=== PATIENT | female | born 1995 | race Caucasian/White ===

== ENCOUNTER 2020-09-02 19:55 | Emergency (ER) | payer SELFPAY ==
[2020-09-02 20:05] VITALS: BP 164/79; PULSE 86; RESP 16; TEMP 36.3; O2SAT 98; BMI 40.8
[2020-09-02 20:10] VITALS: BP 136/78; PULSE 80; RESP 16; TEMP 36.3; O2SAT 98
--- NOTE | 2020-09-02 20:17 | ED_ITS ---
HPI - Skin/Abscess/Foreign Bdy General: Chief complaint: Skin/Abscess/Foreign Body Stated complaint: Sun Burn Time Seen by Provider: 09/02/20 20:17 History of Present Illness: HPI narrative: Patient comes in for a sunburn to the shoulders forearms thighs and knees. Patient reports sunburn occurred about 5 days ago. Patient has had worsening pain and discomfort to the left thigh and knee area. Patient appears well. Patient appears in no acute distress. Review of Systems General: Reports: 10 or more systems reviewed and unremarkable except in HPI and below Skin/Breast: Reports: other (Sunburn) Physical Exam Const: COMMON NORMALS: no acute distress and patient oriented x3 GENERAL APPEARANCE: cooperative HENMT: COMMON NORMALS: normocephalic and Normal external nose present HEAD & SCALP: normal to inspection and normocephalic NOSE: Normal external nose pr esent Eye: GENERAL EYE: appearance normal, both eyes and all related structures Neck/C-Spine: COMMON NORMALS: full ROM Chest: COMMONS NORMALS: normal inspection of the chest Resp: COMMON NORMALS: normal respiratory effort EFFORT & INSPECTION: Yes able to speak in complete sentences Cardio: COMMON NORMALS: regular rate and regular rhythm RATE: regular rate RHYTHM: regular rhythm GI: COMMON NORMALS: non-tender Extremity: COMMON NORMALS: normal to inspection Neuro: COMMON NORMALS: patient oriented x3 and moves all extremities Psych: COMMON NORMALS: mental status grossly normal and cooperative Skin: NARRATIVE SKIN EXAM: Significant sunburn is noted to the shoulders upper extremities thighs and knees of the lower extremities. Patient reports increased redness and tenderness to the left leg. Patient denies any fever. Course Vital Signs: Vital signs: Vital Signs Temperature 97.3 F L 09/02/20 20:05 Pulse Rate 86 09/02/20 20:05 Respiratory Rate 16 09/02/20 20:05 Blood Pressure 164/79 09/02/20 20:05 Pulse Oximetry 98 09/02/20 20:05 MDM - Skin/Abscess/Foreign Bdy MDM Narrative: Medical decision making narrative: Patient comes in for persistent discomfort due to sunburn with worsening symptoms to the left thigh and knee area of her sunburn. Vital signs are normal. Differential diagnosis includes sunburn second-degree, cellulitis, malingering. Recommended patient be treated with antibiotic to cover for secondary cellulitis to the sunburn. Discussed need for Discharge Plan Discharge Patient Disposition: Home Clinical Impression: Sunburn of second degree Condition: Stable Prescriptions: New bacitracin 500 unit/gram ointment 1 applic topical BID Qty: 60 RF: 0 cephalexin 500 mg capsule 500 mg PO TID 7 Days Qty: 21 RF: 0 ibuprofen 800 mg tablet 800 mg PO TID PRN (Reason: pain (scale score 7-10)) Qty: 30 RF: 0 Discharge Orders: Discharge ED (Routine); Ordered 09/02/20 Ordered By: Tristan Soto Discharge Diet: Usual diet Discharge Activity: Increase activity as tolerated Patient Instructions: Sunburn (ED), Opioid Safety Activity Restrictions/Additional Instructions: Use medication as directed. Drink plenty of water with medication. Avoid sunlight until wounds are healed. Use sunscreen routinely to prevent further monzon. Follow-up with primary care as needed. Return to the ER for new concer ns. Coding Level of Care Code ED Rf Engineer for Brady Curry
[2020-09-02 20:38] VITALS: BP 136/78; PULSE 80; RESP 16; TEMP 36.3; O2SAT 98
== END 2020-09-02 20:39 | disposition home or self-care (01) ==
PROVIDERS: Emergency Provider Nurse Practitioner Family
DX: L55.1 Sunburn of second degree (principal)
CPT/HCPCS: 99282

== ENCOUNTER 2021-01-14 23:52 | Inpatient (IN) | payer SELFPAY ==
[2021-01-15] VITALS: BP 99/53; PULSE 120; RESP 24; TEMP 36.8; O2SAT 120; BMI 39.2
--- NOTE | 2021-01-15 00:16 | ECG_ITS ---
[facility] Test Date: 2021-01-15 Pat Name: Abril Jaime Department: Room: 153 Gender: Female Svp Group Director: : 1995 Requested By: Will Arrington Order Number: [id number] Monik MD: Lilian Julio M.D. Measurements Intervals [place] Rate: 87 P: 20 ID: [id number] QRS: 81 QRSD: 96 T: 28 QT: 357 QTc: 432 Interpretive Statements SINUS RHYTHM No previous ECG available for comparison Electronically Signed On 01-15-2021 21:06:01 CDT by Lilian Julio M.D. [id number]
--- NOTE | 2021-01-15 00:31 | PC.NURSE ---
Poison Control called [facility]. Stated EKG watch for QT changes, TX with BEnzo's. Toxic dose is 1000mg. Reviewed BP and HR. Halflife 6 to 10 hours. Not clear time of when pt took 4 tabs of Cymbalta 60mg. 2 prior to work today and then 2 more sometime during work today. [facility]mm to fax over the details of OVerdose care. Review with Nursing staff, diesel maintenance technician and MD.
--- NOTE | 2021-01-15 00:34 | ED_ITS ---
HPI - Psych General: Chief Complaint: Psychiatric Symptoms Stated Complaint: Rapid Heart Beat/SOB/SI Time Seen by Provider: 01/15/21 00:15 Source: patient Mode of arrival: ambulatory Limitations: no limitations History of Present Illness: HPI Narrative: 25-year-old female states she has been having anxiety and severe anger and depression throughout the day. She states she felt like her heart racing she been short of breath. She states that these feelings have been giving her suicidal thoughts. She had took extra Prozac today states she took 460 mg pills throughout the day due to her increasing anxiety and depression. She denies any specific plans to kill her self. Denies any cough or fever. Associated symptoms: Reports depression Review of Systems Const: Denies: fever(s), chills, body aches or change in appetite Eyes: Denies: blurry vision or eye discomfort ENMT: Denies: throat pain or dental pain Card: Reports: palpitations Resp: Reports: dyspnea GI: Denies: abdominal pain, nausea, vomiting or diarrhea : Denies: dysuria Musc: Denies: neck pain or back pain Skin/Breast: Denies: rash Neuro: Denies: headache(s) Psych: Reports: anxiety and depression [place]/Lymph: Denies: easy bruising All/Imm: Denies: urticaria Physical Exam Const: COMMON NORMALS: no acute distress, patient oriented x3 and healthy appearing HENMT: COMMON NORMALS: normocephalic and atraumatic HEAD & SCALP: normocephalic and atraumatic Eye: COMMON NORMALS: Equal, round and reactive pupils present and EOMs intact bilaterally PUPIL: Yes Equal, round and reactive pupils present Neck/C-Spine: COMMON NORMALS: full ROM and supple Chest: COMMONS NORMALS: normal inspection of the chest and normal palpation of entire chest wall Resp: COMMON NORMALS: normal respiratory effort, No retractions, No use of accessory muscles and clear to auscultation bilaterally AUSCULTATION: clear to auscultation bilaterally Cardio: COMMON NORMALS: regular rhythm and No murmurs present (Cardio) RATE: tachycardic RHYTHM: regular rhythm GI: COMMON NORMALS: Normal to inspection, nondistended, normoactive bowel sounds present, Soft to palpation, non-tender and no masses PALPATION: Yes Soft to palpation Extremity: COMMON NORMALS: normal to inspection and full ROM Neuro: COMMON NORMALS: patient oriented x3, moves all extremities and no focal motor deficits Psych: COMMON NORMALS: mental status grossly normal, Normal thought process present and cooperative MOOD & AFFECT: Yes anxious THOUGHT PROCESS: Normal thought process present THOUGHT CONTENT: Yes Suicidality present Skin: COMMON NORMALS: no rashes or lesions noted and no wounds GENERAL SKIN EXAM: no rashes or lesions noted Course 2 Vital Signs: Vital signs: Vital Signs Temperature 98.2 F 01/15/21 00:00 Pulse Rate 120 H 01/15/21 00:00 Respiratory Rate 24 H 01/15/21 00:00 Blood Pressure 99/53 01/15/21 00:00 Pulse Oximetry 120 H 01/15/21 00:00 MDM - Psych MDM Narrative: Medical decision making narrative: Patient presents here with anxiety along with depression. Patient's blood work here is all normal she has no signs of pulmonary embolism or any cause for dyspnea besides her anxiety. Her depression is worsening and she voluntarily wants to be admitted to psych unit. I spoke to psychiatrist Dr. Jama and will admit at this time. Lab Data: Labs: Lab Results 01/15/21 01/15/21 01/15/21 00:55 00:55 00:55 WBC 10.2 10^3/uL H 10 ^3/uL (4.0-10.0) RBC 4.88 10^6/uL 10^6 /uL (4.1-5.3) Hgb 14.5 g/dL g/dL (11.5-15.3) Hct 43.8 % % (37.0-47.0) MCV 89.8 fl fl (81-99) MCH 29.7 pg pg (28.0-34.0) MCHC 33.1 g/dL g/dL (30.0-36.0) RDW 12.7 % % (12.1-15.1) Plt Count 345 10^3/cmm 10^3 /cmm (130-400) MPV 10.0 fL fL (7.4-10.4) Neut % (Auto) 63.5 % % Lymph % (Auto) 26.9 % % [place] % (Auto) 6.5 % % Eos % (Auto) 1.6 % % Baso % (Auto) 0.9 % % Neut # (Auto) 6.50 10^3/uL 10^3 /uL (1.8-7.7) Lymph # (Auto) 2.8 10^3/uL 10^3/ uL (0.8-4.8) [place] # (Auto) 0.7 10^3/uL 10^3/ uL (0.2-0.9) Eos # (Auto) 0.2 10^3/uL 10^3/ uL (0.0-0.8) Baso # (Auto) 0.1 10^3/uL 10^3/ uL (0.0-0.1) Nucleated RBC % (a uto) 0 % % Nucleated RBCs # 0.0 /100WBC /100W BC D-Dimer 0.37 ug/mIFEU ug/ mIFEU (0-0.59) Sodium 136 mmol/L mmol/L (136-145) Potassium 3.6 mmol/L mmol/L (3.5-5.1) Chloride 100 mmol/L mmol/L (98-107) Carbon Dioxide 21 mmol/L L mmol/ L (22-29) Anion Gap 18.6 (5-19) BUN 13 mg/dL mg/dL (6-20) Creatinine 0.7 mg/dL mg/dL (0.5-0.9) GFR Calculation 103.7 mL/min mL/m in (90-130) Glucose 67 mg/dL mg/dL (65-115) Calculated Osmolal ity 280 mOsm/kg L mOs m/kg (285-295) Calcium 10.3 mg/dL mg/dL (8.5-10.5) Magnesium 2.2 mg/dL mg/dL (1.7-2.3) Total Bilirubin 0.4 mg/dL mg/dL (0.15-1.2) AST 18 U/L U/L (0-32) ALT 21 U/L U/L (0-33) Alkaline Phosphata se 120 IU/L H IU/L (35-105) Total Protein 8.4 g/dL g/dL (6.6-8.7) Albumin 4.7 g/dL g/dL (3.5-5.2) Globulin 3.7 g/dL g/dL (1.3-4.6) TSH 2.56 uIU/mL uIU/m L (0.27-4.20) Urine Color Urine Appearance Urine pH Ur Specific Gravit y Urine Protein Urine Glucose (UA) Urine Ketones Urine Blood Urine Nitrate Urine Bilirubin Urine Urobilinogen Ur Leukocyte Lamar ase Urine RBC Urine WBC Ur Squamous Epith Cells Calcium Oxalate Cr ystal Amorphous Sediment Urine Bacteria Urine Mucus Salicylates < 0.3 mg/dL L mg/ dL (3-10) Urine Opiates Scre en Acetaminophen < 5.0 ug/mL L ug/ mL (10-30) Ur Barbiturates Sc reen Ur Phencyclidine S crn Ur Amphetamines Sc reen U Benzodiazepines Scrn Urine Cocaine Scre en U Marijuana (THC) Screen Ethyl Alcohol < 10 mg/dL mg/dL (0-10) 01/15/21 01/15/21 00:55 00:55 WBC RBC Hgb Hct MCV MCH MCHC RDW Plt Count MPV Neut % (Auto) Lymph % (Auto) [place] % (Auto) Eos % (Auto) Baso % (Auto) Neut # (Auto) Lymph # (Auto) [place] # (Auto) Eos # (Auto) Baso # (Auto) Nucleated RBC % (a uto) Nucleated RBCs # D-Dimer Sodium Potassium Chloride Carbon Dioxide Anion Gap BUN Creatinine GFR Calculation Glucose Calculated Osmolal ity Calcium Magnesium Total Bilirubin AST ALT Alkaline Phosphata se Total Protein Albumin Globulin TSH Urine Color Yellow (Yellow) Urine Appearance Sl hazy (CLEAR) Urine pH 5 (5-7) Ur Specific Gravit y 1.030 (1.005-1.030) Urine Protein Neg (Negative) Urine Glucose (UA) Norm (Normal) Urine Ketones 1+ H (Negative) Urine Blood Neg (Negative) Urine Nitrate Negative (Negative) Urine Bilirubin 1+ H (Negative) Urine Urobilinogen 1 mg/dL H mg/dL (Negative) Ur Leukocyte Lamar ase Trace H (Negative) Urine RBC 0-4 /hpf H /hpf (0-2) Urine WBC 15-25 /hpf H /hpf (0-5) Ur Squamous Epith Cells 15-25 /hpf H /hpf (0-5) Calcium Oxalate Cr ystal 25-40 /hpf H /hpf Amorphous Sediment Not Reportable Urine Bacteria 4+ /hpf H /hpf (NONE) Urine Mucus 2+ /hpf /hpf Salicylates Urine Opiates Scre en Negative ng/mL ng /mL (Negative) Acetaminophen Ur Barbiturates Sc reen Negative ng/mL ng /mL (Negative) Ur Phencyclidine S crn Negative ng/mL ng /mL (Negative) Ur Amphetamines Sc reen Negative ng/mL ng /mL (Negative) U Benzodiazepines Scrn Negative ng/mL ng /mL (Negative) Urine Cocaine Scre en Negative ng/mL ng /mL (Negative) U Marijuana (THC) Screen Negative ng/mL ng /mL (Negative) Ethyl Alcohol EKG Data^: EKG 1: Attestation: I personally reviewed and interpreted this EKG as follows: EKG interpretation date: 01/15/21 EKG interpretation time: 00:37 Interpretation: nsr hr [address] or t wave abnormalities qrs 96 qtc 402 Discharge Plan Discharge Patient Disposition: Admitted As Inpatient Admit Provider: Eren Jama Clinical Impression: Depression, Acute anxiety Condition: Stable Coding Level of Care Code ED Furniture Sander for Brady Fwd Exam Comprehensive
[2021-01-15] MEDS: LORazepam 2 mg/mL INJ 1 mL 1 MG IVP (01:15)
[2021-01-15 01:20] LABS: Basophils # 0.1 10^3/uL (0.0-0.1); Basophils % 0.9 %; Eosinophils # 0.2 10^3/uL (0.0-0.8); Eosinophils % 1.6 %; Hematocrit 43.8 % (37.0-47.0); Hemoglobin 14.5 g/dL (11.5-15.3); Lymphocytes # 2.8 10^3/uL (0.8-4.8); Lymphocytes % 26.9 %; Mean Corpuscular HGB Conc 33.1 g/dL (30.0-36.0); Mean Corpuscular Hemoglobin 29.7 pg (28.0-34.0); Mean Corpuscular Volume 89.8 fl (81-99); Monocytes # 0.7 10^3/uL (0.2-0.9); Monocytes % 6.5 %; Neutrophils % 63.5 %; Nucleated Red Blood Cells % 0 %; Platelet Count 345 10^3/cmm (130-400); Red Blood Count 4.88 10^6/uL (4.1-5.3); Red Cell Distribution Width 12.7 % (12.1-15.1); White Blood Count 10.2 10^3/uL (4.0-10.0)
[2021-01-15 01:51] LABS: Add Urine Microscopic? YES; Bilirubin Urine 1+ (Negative); Blood Urine Neg (Negative); Glucose Urine UA Norm (Normal); Ketones Urine 1+ (Negative); Leukocyte Esterase Urine Trace (Negative); Nitrate Urine Negative (Negative); Protein Urine Neg (Negative); Urine Appearance SL Hazy (CLEAR); Urine Color Yellow (Yellow); Urobilinogen Urine 1 mg/dL (Negative); pH Urine 5 (5-7)
[2021-01-15 01:54] LABS: D Dimer 0.37 ug/mIFEU (0-0.59)
[2021-01-15 01:56] LABS: Alanine Aminotransferase 21 U/L (0-33); Albumin Level 4.7 g/dL (3.5-5.2); Alkaline Phosphatase 120 IU/L (35-105); Anion Gap 18.6 (5-19); Aspartate Amino Transferase 18 U/L (0-32); Blood Urea Nitrogen 13 mg/dL (6-20); Calcium 10.3 mg/dL (8.5-10.5); Carbon Dioxide 21 mmol/L (22-29); Chloride 100 mmol/L (98-107); Globulin 3.7 g/dL (1.3-4.6); Glomerular Filtration Rate 103.7 mL/min (90-130); Glucose 67 mg/dL (65-115); Magnesium 2.2 mg/dL (1.7-2.3); Osmolality Calculated 280 mOsm/kg (285-295); Potassium 3.6 mmol/L (3.5-5.1); Sodium 136 mmol/L (136-145); Thyroid Stimulating Hormone 2.56 uIU/mL (0.27-4.20); Total Bilirubin 0.4 mg/dL (0.15-1.2); Total Protein 8.4 g/dL (6.6-8.7)
[2021-01-15 01:57] LABS: RBC Urine 0-4 /hpf (0-2); WBC Urine 15-25 /hpf (0-5)
[2021-01-15 01:58] LABS: Add Urine Culture? No; Bacteria Urine 4+ /hpf; Calcium Oxalate Crystals Urine 25-40 /hpf; Mucus Urine 2+ /hpf; Squamous Epithelial Cell Urine 15-25 /hpf (0-5)
[2021-01-15 01:59] LABS: Acetaminophen < 5.0 ug/mL (10-30); Alcohol Level < 10 mg/dL (0-10); Salicylate < 0.3 mg/dL (3-10)
[2021-01-15 02:03] VITALS: BP 135/89; PULSE 88; RESP 20; TEMP 36.8; O2SAT 100
[2021-01-15 02:03] LABS: Amphetamines Screen Urine Negative (Negative); Barbiturates Screen Urine Negative (Negative); Benzodiazepines Screen Urine Negative (Negative); Cocaine Screen Urine Negative (Negative); Opiate Screen Urine Negative (Negative); PCP Screen Urine Negative (Negative); THC Screen Urine Negative (Negative)
[2021-01-15 02:56] VITALS: BP 102/63; PULSE 74; RESP 18; O2SAT 98
[2021-01-15] MEDS: trazodone 50 mg Tablet PO (03:23)
[2021-01-15 06:00] VITALS: BP 116/76; PULSE 97; RESP 16; TEMP 36.6; O2SAT 97; BMI 39.2
--- NOTE | 2021-01-15 08:27 | PC.NURSE ---
Poison control called this nurse at this time assessing patient. Vital signs WNL for patient. Lab results reported to poison control. Stated she will call again in a few hours to ask about patient.
[2021-01-15 14:00] VITALS: BP 129/68; PULSE 77; RESP 16; TEMP 36.6; O2SAT 99
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
[2021-01-15 20:54] VITALS: BP 118/87; PULSE 88; RESP 17; TEMP 36.2; O2SAT 99
--- NOTE | 2021-01-15 21:48 | PC.NURSE ---
Abril is a 25 year old female admitted onto our unit yesterday. She was observed sitting in the day prior to her assessment tonight working on some art work. She enjoys word searches, coloring and drawing. Patient stated she was frustrated and felt she didn't need to be here in the unit. Patient stated she'd ran out of her duloxetine and after about 5 days, her mother offered for her to take some of her prescription duloxetine until she could afford to get her meds refilled. Work was stressful so she decided to take two pills. when that wasn't effective, she took more but doesn't remember how long it had been between doses. She also stated she was also drinking a new energy drink that day too. She came to the hospital after she told her Grandma she felt like she was having a heart attack. She was frustrated because the doctor didn't come in today to talk with her to release her home. Discussed triggers to her anxiety and brainstormed ideas on how to prevent or resolve these triggers when they happen. Patient stated this place isn't bad. It's better than some of the other places I've stayed. I just wish I could keep my cell phone with me, it really helps me with my anxiety issues. Observed two red scratches on the right side of her neck. She stated she scratched herself at work during her anxiety attack. Patient denies any pain, sob, SI, HI or plans for self harm. Encouraged patient to approach the nurses station with any questions or concerns she may have.
[2021-01-16] MEDS: hyDROXYzine 25 mg Capsule 50 MG PO (01:44)
[2021-01-16] MEDS: trazodone 50 mg Tablet PO (01:44)
[2021-01-16 06:00] VITALS: BP 128/76; PULSE 68; RESP 15; TEMP 36.2; O2SAT 98
[2021-01-16] MEDS: BuSPIRONE 10 mg Tablet 15 MG PO ×2 (10:10→20:45)
--- NOTE | 2021-01-16 11:17 | NPU.GN ---
[facility] Topic:Carlitos Quiroga General Mood of Group: Abril did not attend group therapy as she wanted to sleep.
[2021-01-16 14:00] VITALS: BP 130/85; PULSE 94; RESP 20; TEMP 36.1; O2SAT 99
--- NOTE | 2021-01-16 15:49 | PC.NURSE ---
Patient has had visitors this afternoon. Interacting well with staff and visitors. Good eye contact, clear speech, logical thought content. Patient is requesting to sign herself out. States, I check myself in when I need it. So much happened that led up to me coming in, and I needed to be here. Now I feel that I have made it to the top of the hill and come down and everything is level. I'm safe and want to go home. Informed patient I needed to contact the physician.
--- NOTE | 2021-01-16 15:53 | PC.NURSE ---
Dr. Wiley morocho.
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
--- NOTE | 2021-01-16 18:15 | PC.NURSE ---
PATIENT INFORMED OF DR. LU DECISION. HE DID NOT AGREE TO RELEASE HER TONIGHT DUE TO HER STATEMENT ABOUT TAKING 240MG OF HER ANTI-DEPRESSANTS AND HE WOULD DISCUSS THIS ISSUE WITH HER IN THE MORNING. SHE RELUCTANTLY AGREED.
[2021-01-16 22:00] VITALS: BP 128/72; PULSE 81; RESP 18; TEMP 36.2; O2SAT 97
[2021-01-17 06:00] VITALS: BP 126/79; PULSE 94; RESP 15; TEMP 36.8; O2SAT 99
[2021-01-17] MEDS: nitrofurantoin SR (BID) 100 mg Capsule PO (08:31)
[2021-01-17] MEDS: BuSPIRONE 10 mg Tablet 15 MG PO (08:31)
--- NOTE | 2021-01-17 12:03 | NPU.GN ---
[facility] Topic:Michelle General Mood of Group: Abril did not attend group therapy today. Abril wanted to sleep.
[2021-01-17 14:00] VITALS: BP 145/81; PULSE 104; RESP 20; TEMP 36.1; O2SAT 95
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
[2021-01-17 15:43] VITALS: BP 145/81; PULSE 104; RESP 20; TEMP 36.1; O2SAT 95
== END 2021-01-17 16:31 | disposition home or self-care (01) | DRG 880 ==
LOC: ER 01-15 02:04 → NP 01-15 02:20
PROVIDERS: Admitting Provider Psychiatry & Neurology Psychiatry; Emergency Provider Emergency Medicine; Visit Provider Psychiatry & Neurology Psychiatry
DX: F41.9 Anxiety disorder, unspecified (principal); F32.A Depression, unspecified; R45.4 Irritability and anger; E66.9 Obesity, unspecified; Z68.39 Body mass index [BMI] 39.0-39.9, adult
CPT/HCPCS: 80053; 80306; 80307; 81001; 83735; 84443; 85025; 85378; 93005; 96374; 97165; 99285; J2060

== ENCOUNTER 2021-01-21 20:50 | Inpatient (IN) | payer SELFPAY ==
[2021-01-21 21:13] VITALS: BP 144/73; PULSE 81; RESP 20; TEMP 37; O2SAT 98; BMI 38.7
--- NOTE | 2021-01-21 21:22 | ED_ITS ---
HPI - General Adult General: Chief complaint: Psychiatric Symptoms Stated complaint: SI Time Seen by Provider: 01/21/21 21:13 History of Present Illness: HPI narrative: HPI: [25]yo patient w/ hx of depression BIBA for woresening anxiety and depressoin. for On arrival, the patient is AAOx3 and cooperative with my evaluation. No focal complaints of chest pain, shortness of breath, palpitations, N/V, focal GI/ complaints. Currently denies SI/HI. No complaints of hallucinations. Onset: chronic Duration: ongoing Location: home Severity: severe Review of Systems Narrative: Constitutional: No fever, no chills. HEENT: No vision changes CV: No chest pain, no palpitations PULM: No productive cough, no dyspnea. GI: No abdominal pain, no N/V/D. : No dysuria MSKEL: No muscle pain SKIN: No new rashes, no lesions. NEURO: No headache, no focal weakness. HEME: No visible bruises PSYCH: Normal mood [facility] Female Reproductive History: Date of last menstrual period: 01/20/21 Physical Exam Narrative: EXAM NARRATIVE: Head: Atraumatic Eyes: PERRL, conjunctiva without injection, eyes tracking ENT: Mucous membrane moist NECK: Supple without lymphadenopathy LUNGS: LCTAB CV: RRR ABDOMEN: Soft, nontender EXTREMITY: Normal ROM SKIN: No rash or erythema NEURO: Awake and alert. No focal weakness PSYCH: Cooperative mood and affect. Course Vital Signs: Vital signs: Vital Signs Temperature 98.6 F 01/26/21 14:00 Pulse Rate 97 01/26/21 14:00 Respiratory Rate 18 01/26/21 14:00 Blood Pressure 125/80 01/26/21 14:00 Pulse Oximetry 98 01/26/21 14:00 MDM - General Adult MDM Narrative: Medical decision making narrative: [25]yo patient w/ hx of depression and anxiety presenting for worsening depression. HDS, exam within normal limit Thoughts are linear and organized, and the patient has no AH/VH, or HI. Clinically the patient displays no overt toxidrome; they are well appearing, with low suspicion for toxic ingestion given history and exam. Symptoms unlikely 2/2 anemia, hypothyroidism, infection, or ICH. Workup: CBC, CMP, Lipase, salicylate/tylenol, UDS Lab findings: wnl [9:58] On reassessment, labs and workup wnl. Patient is hemodynamically stable with no acute medical complaints. Case discussed with psychiatric provider Dr. Goodrich at [facility] psych inpatient with recommendation for admission Disposition: Psych Lab Data: Labs: Lab Results 01/21/21 01/21/21 01/21/21 21:50 21:50 21:50 WBC 12.5 10^3/uL H 10 ^3/uL (4.0-10.0) RBC 4.66 10^6/uL 10^6 /uL (4.1-5.3) Hgb 13.8 g/dL g/dL (11.5-15.3) Hct 42.2 % % (37.0-47.0) MCV 90.6 fl fl (81-99) MCH 29.6 pg pg (28.0-34.0) MCHC 32.7 g/dL g/dL (30.0-36.0) RDW 12.8 % % (12.1-15.1) Plt Count 364 10^3/cmm 10^3 /cmm (130-400) MPV 10.1 fL fL (7.4-10.4) Neut % (Auto) 73.8 % % Lymph % (Auto) 19.6 % % Carbon % (Auto) 4.5 % % Eos % (Auto) 0.9 % % Baso % (Auto) 0.8 % % Neut # (Auto) 9.24 10^3/uL H 10 ^3/uL (1.8-7.7) Lymph # (Auto) 2.5 10^3/uL 10^3/ uL (0.8-4.8) Carbon # (Auto) 0.6 10^3/uL 10^3/ uL (0.2-0.9) Eos # (Auto) 0.1 10^3/uL 10^3/ uL (0.0-0.8) Baso # (Auto) 0.1 10^3/uL 10^3/ uL (0.0-0.1) Nucleated RBC % (a uto) 0 % % Nucleated RBCs # 0.0 /100WBC /100W BC Sodium 138 mmol/L mmol/L (136-145) Potassium 3.9 mmol/L mmol/L (3.5-5.1) Chloride 105 mmol/L mmol/L (98-107) Carbon Dioxide 23 mmol/L mmol/L (22-29) Anion Gap 13.9 (5-19) BUN 8 mg/dL mg/dL (6-20) Creatinine 0.6 mg/dL mg/dL (0.5-0.9) GFR Calculation 123.9 mL/min mL/m in (90-130) Glucose 80 mg/dL mg/dL (65-115) Calculated Osmolal ity 283 mOsm/kg L mOs m/kg (285-295) Calcium 9.6 mg/dL mg/dL (8.5-10.5) Urine HCG, Qual Negative (Negative) Salicylates < 0.3 mg/dL L mg/ dL (3-10) Urine Opiates Scre en Acetaminophen < 5.0 ug/mL L ug/ mL (10-30) Ur Barbiturates Sc reen Ur Phencyclidine S crn Ur Amphetamines Sc reen U Benzodiazepines Scrn Urine Cocaine Scre en U Marijuana (THC) Screen 01/21/21 22:00 WBC RBC Hgb Hct MCV MCH MCHC RDW Plt Count MPV Neut % (Auto) Lymph % (Auto) Carbon % (Auto) Eos % (Auto) Baso % (Auto) Neut # (Auto) Lymph # (Auto) Carbon # (Auto) Eos # (Auto) Baso # (Auto) Nucleated RBC % (a uto) Nucleated RBCs # Sodium Potassium Chloride Carbon Dioxide Anion Gap BUN Creatinine GFR Calculation Glucose Calculated Osmolal ity Calcium Urine HCG, Qual Salicylates Urine Opiates Scre en Negative ng/mL ng /mL (Negative) Acetaminophen Ur Barbiturates Sc reen Negative ng/mL ng /mL (Negative) Ur Phencyclidine S crn Negative ng/mL ng /mL (Negative) Ur Amphetamines Sc reen Negative ng/mL ng /mL (Negative) U Benzodiazepines Scrn Negative ng/mL ng /mL (Negative) Urine Cocaine Scre en Negative ng/mL ng /mL (Negative) U Marijuana (THC) Screen Negative ng/mL ng /mL (Negative) Discharge Plan Discharge Patient Disposition: Admitted As Inpatient Admit Provider: Blaine Goodrich Clinical Impression: Depression, Anxiety Condition: Stable Coding Level of Care Code ED Drop Hammer Operator Helper for Brady Curry
[2021-01-21 22:13] LABS: Basophils # 0.1 10^3/uL (0.0-0.1); Basophils % 0.8 %; Eosinophils # 0.1 10^3/uL (0.0-0.8); Eosinophils % 0.9 %; Hematocrit 42.2 % (37.0-47.0); Hemoglobin 13.8 g/dL (11.5-15.3); Lymphocytes # 2.5 10^3/uL (0.8-4.8); Lymphocytes % 19.6 %; Mean Corpuscular HGB Conc 32.7 g/dL (30.0-36.0); Mean Corpuscular Hemoglobin 29.6 pg (28.0-34.0); Mean Corpuscular Volume 90.6 fl (81-99); Mean Platelet Volume 10.1 fL (7.4-10.4); Monocytes # 0.6 10^3/uL (0.2-0.9); Monocytes % 4.5 %; Neutrophils # 9.24 10^3/uL (1.8-7.7); Neutrophils % 73.8 %; Nucleated Red Blood Cells % 0 %; Platelet Count 364 10^3/cmm (130-400); Red Blood Count 4.66 10^6/uL (4.1-5.3); Red Cell Distribution Width 12.8 % (12.1-15.1); White Blood Count 12.5 10^3/uL (4.0-10.0)
[2021-01-21 22:25] LABS: Amphetamines Screen Urine Negative (Negative); Barbiturates Screen Urine Negative (Negative); Benzodiazepines Screen Urine Negative (Negative); Cocaine Screen Urine Negative (Negative); Opiate Screen Urine Negative (Negative); PCP Screen Urine Negative (Negative); THC Screen Urine Negative (Negative)
[2021-01-21 22:36] LABS: Anion Gap 13.9 (5-19); Blood Urea Nitrogen 8 mg/dL (6-20); Calcium 9.6 mg/dL (8.5-10.5); Carbon Dioxide 23 mmol/L (22-29); Chloride 105 mmol/L (98-107); Glomerular Filtration Rate 123.9 mL/min (90-130); Glucose 80 mg/dL (65-115); Osmolality Calculated 283 mOsm/kg (285-295); Potassium 3.9 mmol/L (3.5-5.1); Sodium 138 mmol/L (136-145)
[2021-01-21 22:42] LABS: Acetaminophen < 5.0 ug/mL (10-30); Salicylate < 0.3 mg/dL (3-10)
[2021-01-21 23:14] VITALS: PULSE 74; RESP 18; O2SAT 99
[2021-01-21 23:40] VITALS: BP 143/100; PULSE 75; RESP 19; TEMP 36.6; O2SAT 97
[2021-01-21] MEDS: trazodone 50 mg Tablet PO (23:45)
[2021-01-21] MEDS: hyDROXYzine 25 mg Capsule 50 MG PO (23:45)
[2021-01-22] MEDS: OLANZapine 5 mg ODT PO ×2 (00:10→17:18)
--- NOTE | 2021-01-22 00:30 | PC.NURSE ---
Admission to unit. Admitted to unit at 2310. Patient tearful upon arrival. States she has little insight into her mental health. Is unable to tell nurse her diagnosis and states she is unsure if she wants to learn more about them while here. Reports medications have not been effective since discharge. Did not follow up with OP after leaving. Reports that she has a hx of inpatient, feels better and quits taking her meds and declines again. States she cannot get out of this cycle. Has SI with no plan or intent, just wishing to be . Denies AVH. Denies any Hx of drug/alcohol abuse. Does have a family hx of Mom having anxiety and depression and a brother that had an unsuccessful SA. Patient remained anxious throughout intake. Took PRN Vistaril and Trazodone. ordered PRN Zydis to be given. Patient also educated on coping skills and thought redirection. Patient in bed resting at this time.
[2021-01-22 06:00] VITALS: BP 97/61; PULSE 57; RESP 16; TEMP 36.8; O2SAT 98
[2021-01-22] MEDS: nitrofurantoin SR (BID) 100 mg Capsule PO ×2 (08:49→20:52)
[2021-01-22] MEDS: BuSPIRONE 10 mg Tablet 15 MG PO ×2 (08:49→20:52)
[2021-01-22 14:00] VITALS: BP 131/69; PULSE 72; RESP 16; TEMP 36.1; O2SAT 99
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
[2021-01-22] MEDS: hyDROXYzine 25 mg Capsule 50 MG PO (15:25)
--- NOTE | 2021-01-22 15:26 | PC.NURSE ---
PRN VISTARIL 50 MG GIVEN PO PER PT C/O ANXIETY. PT TEARFUL, CRYING LOUDLY WHILE ON THE PHONE, TEARFUL AT THE NURSES STATION.
--- NOTE | 2021-01-22 17:14 | PC.NURSE ---
PATIENT IN ROOM, CRYING, REPORTING, I CAN'T THINK ABOUT ANYTHING! I TRY TO THINK ABOUT CUTE THINGS AND I CRY. I TRY TO THINK ABOUT MY RELIGIOUS AND I CRY BECAUSE I HAVE DOUBTS AND I'M AFRAID I'M GOING TO HELL AND THAT SCARES ME. I TRIED TO EAT AND IT MADE ME FEEL SICK, I CAN'T HARDLY EVEN THING ABOUT TAKING A DRINK OF WATER RIGHT NOW WITHOUT CRYING. I JUST WANT TO CURL UP IN A BALL AND RIGHT NOW. PATIENT AGREED TO CONTRACT FOR SAFETY AND COME TO STAFF IF THOUGHTS WORSEN, WILL CHECK MAR AND MEDICATE PATIENT WITH PRN MEDICATIONS.
[2021-01-22] MEDS: ondansetron 4 MG Tablet PO (17:18)
[2021-01-22 20:04] VITALS: BP 92/65; PULSE 76; RESP 15; TEMP 36.7; O2SAT 96
--- NOTE | 2021-01-22 23:49 | PC.NURSE ---
Upon assessment pt lying in bed.Patient is groggy but willing to answer questions. She denied any complaints at the time and wanted to go to sleep. Physical assessment was unremarkable. Will continue to monitor and follow plan of care. Q 15 min safety checks per protocol.
[2021-01-23 06:00] VITALS: BP 106/66; PULSE 92; RESP 16; TEMP 36.7; O2SAT 97
[2021-01-23] MEDS: BuSPIRONE 10 mg Tablet 15 MG PO ×2 (08:20→20:31)
[2021-01-23] MEDS: nitrofurantoin SR (BID) 100 mg Capsule PO ×2 (08:20→20:32)
[2021-01-23] MEDS: hyDROXYzine 25 mg Capsule 50 MG PO ×2 (09:38→20:31)
--- NOTE | 2021-01-23 09:39 | PC.NURSE ---
PRN VISTARIL 50 MG GIVEN PO PER PT C/O STATED ANXIETY. NO OUTWARD S/S OF ANXIETY NOTED, PT SMILING WHILE ASKING FOR PRN MEDICATIONS.
[2021-01-23] MEDS: ondansetron 4 MG Tablet PO (10:54)
[2021-01-23] MEDS: acetaminophen 325 mg Tablet 650 MG PO (10:54)
--- NOTE | 2021-01-23 10:58 | PC.NURSE ---
PATIENT PRESENTED TO THE NURSES DESK WITH COMPLAINTS OF GENERAL MALISE, HEADACHES, NAUSEA. MEDICATED WITH PRN MEDS, TYLENOL 650MG AND ZOFRAN 4MG.
[2021-01-23 13:19] VITALS: BP 137/80; PULSE 88; RESP 20; TEMP 37.1; O2SAT 100
[2021-01-23] MEDS: haloperidol 5 mg Tablet PO (13:26)
--- NOTE | 2021-01-23 17:00 | P.PN_ITS ---
Subjective NPU Subjective: Interval history: I spoke with the patient's mother, grandmother, and stepfather. They say that the patient has taken a number of different psychiatric medications, but she often does not stay on them for very long, not long enough to know if they were actually effective. They confirm that the patient is often in a great deal of distress. They say she has had a diagnosis of Asperger's disorder in the past. We talked some about medication. They say stimulants have made her worse in the past. They feel that the medication for breakthrough anxiety which she was discharged on a few days ago (hydroxyzine) made things worse as well. They think that the duloxetine she was taking may have been helpful, but that she was not on a high enough dose. They think she did take Risperdal and it was helpful for a bit. I talked about adding Risperdal as a mood stabilizer, to help with anxiety, and because it is helpful for autism spectrum irritability. They like that idea. I spoke with the patient. She told me a number of times and in different ways how badly she has been feeling. She says she asked the nurse yesterday to kill her, that is how bad she felt. She says when the anxiety kicks in, all she wants to do is sleep and cry. She says she is emotionally exhausted from the anxiety. She denies auditory and visual hallucinations. Mental Status Exam MSE Comments: I met with the patient on the bench by the nurses station. She was dressed in hospital scrubs and somewhat messily groomed. She was emotionally dysregulated at times, but less so than yesterday. Eye contact was improved. She had psychomotor agitation. Speech was pressured at times. Alert, oriented to person, place, time, and situation. Attention and concentration were fair. Memory is intact to formal testing, but she says she has a great deal of trouble remembering things in her daily life. Mood is depressed and anxious. Affect is tearful at times. Thought process is logical and goal-directed. Thought content: Denies auditory and visual hallucinations. No delusions or paranoia are noted. She has suicidal ideation, but no homicidal ideation. Fund of knowledge is intact to exam. Language is intact to exam. Insight and judgment appear to be somewhat limited. Impulse control is limited as well by her emotional dysregulation. Vitals/I&O/Wt Last Vital Signs Temp 98.8 F 01/23/21 13:19 Pulse 88 01/23/21 13:19 Resp 20 H 01/23/21 13:19 BP 137/80 01/23/21 13:19 Pulse Ox 100 01/23/21 13:19 Weight last 48 hrs Weight 115.666 kg Weight 115.666 kg Data NPU : 01/21/21 21:50 01/21/21 21:50 A&P Assessment and plan (1) Depression: Status: Acute (2) Acute anxiety: Status: Acute (3) Autism spectrum disorder: Status: Acute Additional A&P Information This is a 25 year old female with a history of about 5 previous psychiatric admissions for depression, anxiety, and severe anger, including an admission here from 01/15?01/17/2021 after taking too many of her duloxetine tablets. She admitted for depression, anxiety and suicidal ideation. We will need to rule out cluster B phenomena. She apparently has had a diagnosis of Asperger's disorder in the past, which may explain her perseverative thinking. We will add a diagnosis of autism spectrum disorder. RECOMMENDATION AND PLAN: 1. Continue current medication, BuSpar 15 mg twice daily for anxiety. We will add Risperdal 1 mg twice daily for autism spectrum irritability, mood stabilization, and anxiety. The patient consents and her family is in favor as well. 2. Continue every 15 minute checks for safety. 3. Encourage individual, group and milieu therapies. 4. Refer the patient for outpatient treatment, including DBT therapy if possible. Involuntary Hold Information 96 Hour Hold: 96 Hour Involuntary Admission: No Attestations NPU Medical Necessity Statement*: Psychiatric hospitalization is medically necessary to prevent access to lethal means, to reevaluate medication, and to coordinate a safe discharge. Likely length of stay is 3 to 5 days. Coding Level of Care Code Acute Underwriting Support Manager for Brady Curry Diagnoses Depression F32.A Acute anxiety F41.9 Autism spectrum disorder F84.0
[2021-01-23] MEDS: diphenhydrAMINE 50 mg/mL SDV 1mL IM (17:38)
[2021-01-23] MEDS: haloperidol inj 5 mg/mL INJ 1 mL IM (17:38)
[2021-01-23] MEDS: LORazepam 2 mg/mL INJ 1 mL IM (17:40)
--- NOTE | 2021-01-23 17:40 | PC.NURSE ---
Addendum entered by Citlalli Barron LPN 01/23/21 18:38: PRN MEDICATIONS EFFECTIVE NO FURTHER C/O ANXIETY/AGITATION. PT ASLEEP IN BED IN ROOM CURRENTLY RESP EVEN ET UNLABORED Original Note: PRN BENADRYL/ATIVAN/HALDOL SOMATIC COMPLAINTS, CRYING IF ON CUE AT THE NURSES STATION. WILL STOP CRYING WHEN ON THE PHONE WITH FAMILY. PT UPSET ABOUT BEING HERE ON UNIT, ASKING STAFF TO JUST GET IT OVER WITH AND KILL ME ACCOMPANIED TO HER ROOM BY STAFF X2, BENADRYL 50 MG GIVEN IM LEFT DELTOID. ATIVAN 2 MG GIVEN IM WITH HALDOL 5 MG IM IN LEFT HIP PER PT C/O STATED ANXIETY/AGITATION. PT ENCOURAGED TO STAY IN HER ROOM AND REST TO DECREASE STIMULI, PT VERBALIZED UNDERSTANDING. WILL CONT TO MONITOR
--- NOTE | 2021-01-23 19:30 | NPU.GN ---
[facility] Topic:Stress General Mood of Group:Patient was in group on time, dressed appropriately, with good hygiene. The patient participated in group activities. Today the group was able to work on the stress worksheet. Each individually and together. The patient did share information from the worksheet with the group. The patient did ask questions and responded to other patients in the group.
[2021-01-23 20:22] VITALS: BP 113/64; PULSE 86; RESP 15; TEMP 36.9; O2SAT 98
[2021-01-23] MEDS: risperiDONE 1 mg Tablet PO (20:32)
[2021-01-23] MEDS: trazodone 50 mg Tablet PO (20:32)
--- NOTE | 2021-01-23 20:35 | PC.NURSE ---
pt given trazodone 50mg and vistaril 50mg both po for request for sleep and anxiety.
--- NOTE | 2021-01-23 22:00 | PC.NURSE ---
pt resting quietly with both eyes closed at this time.
--- NOTE | 2021-01-24 01:24 | PC.NURSE ---
Patient remained resting in bed throughout evening. . Did take PRN Vistaril and Trazodone with evening med pass to good effect. In bed with eyes closed at this time. No signs of distress noted.
[2021-01-24 06:00] VITALS: BP 104/68; PULSE 78; RESP 15; TEMP 36.6; O2SAT 98
[2021-01-24] MEDS: BuSPIRONE 10 mg Tablet 15 MG PO ×2 (08:22→19:31)
[2021-01-24] MEDS: risperiDONE 1 mg Tablet PO ×2 (08:22→19:30)
[2021-01-24] MEDS: nitrofurantoin SR (BID) 100 mg Capsule PO ×2 (08:22→19:30)
[2021-01-24] MEDS: hyDROXYzine 25 mg Capsule 50 MG PO ×2 (11:52→21:30)
--- NOTE | 2021-01-24 11:53 | PC.NURSE ---
PRN VISTARIL 50 MG GIVEN PO PER PT C/O STATED ANXIETY.
[2021-01-24 14:00] VITALS: BP 118/81; PULSE 94; RESP 20; TEMP 36.7; O2SAT 95
--- NOTE | 2021-01-24 16:23 | NPU.GN ---
[facility] Topic:Reece (Addiction) General Mood of Group: Patient refused group today.
--- NOTE | 2021-01-24 17:02 | P.PN_ITS ---
Subjective NPU Subjective: Interval history: The patient was calmer when I talked to her. We talked about her symptoms. She says she has a tight feeling in her chest and stomach. This is quite distressing for and causes her to be emotionally tired. Furthermore, she says she is not emotionally tired enough to sleep, but but too emotionally tired to do anything. She says this makes her ready to claw my skin off. As we talked about her symptoms and past treatment, she became more regulated. It turns out her latest breakdown was when she had been off of her duloxetine for a number of days. Apparently this happens where she stops taking her medication and her anxiety gets much worse. She would like to try duloxetine again. We also talked about the patient's passive suicidal ideation. She says that the feeling of wanting to is always there in the back of her mind, but not active. Mental Status Exam MSE Comments: I met with the patient in her room with the door open. She was dressed in hospital scrubs and more neatly groomed. She was only mildly emotionally dysregulated at times, but also had periods of being more emotionally regulated. Eye contact was improved. She had no psychomotor agitation or retardation. Speech was pressured at times. Alert, oriented to person, place, time, and situation. Attention and concentration were fair. Memory is intact to formal testing, but she says she has trouble remembering things in her daily life. Mood is depressed and anxious but improved. Affect is anxious but also columns down. Thought process is logical and goal-directed. Thought content: Denies auditory and visual hallucinations. No delusions or paranoia are noted. She has suicidal ideation, but no homicidal ideation. Fund of knowledge is intact to exam. Language is intact to exam. Insight and judgment appear to be somewhat limited. Impulse control is limited as well. Vitals/I&O/Wt Last Vital Signs Temp 98.0 F 01/24/21 14:00 Pulse 94 01/24/21 14:00 Resp 20 H 01/24/21 14:00 BP 118/81 01/24/21 14:00 Pulse Ox 95 01/24/21 14:00 Data NPU : 01/21/21 21:50 01/21/21 21:50 A&P Assessment and plan (1) Autism spectrum disorder: Status: Acute (2) Depression: Status: Acute (3) Acute anxiety: Status: Acute Additional A&P Information This is a 25 year old female with a history of about 5 previous psychiatric admissions for depression, anxiety, and severe anger, including an admission here from 01/15?01/17/2021 after taking too many of her duloxetine tablets. She admitted for depression, anxiety and suicidal ideation. We will need to rule out cluster B phenomena. She apparently has had a diagnosis of Asperger's disorder in the past, which may explain her perseverative thinking. We will add a diagnosis of autism spectrum disorder. RECOMMENDATION AND PLAN: 1. Continue current medication, BuSpar 15 mg twice daily for anxiety. We added Risperdal 1 mg twice daily for autism spectrum irritability, mood stabilization, and anxiety. We will restart duloxetine 30 mg twice daily for depression and anxiety. 2. Continue every 15 minute checks for safety. 3. Encourage individual, group and milieu therapies. 4. Refer the patient for outpatient treatment, including DBT therapy if possible. Involuntary Hold Information 96 Hour Hold: 96 Hour Involuntary Admission: No Attestations NPU Medical Necessity Statement*: Psychiatric hospitalization is medically necessary to prevent access to lethal means, to reevaluate medication, and to co ordinate a safe discharge. Likely length of stay is 2-4 days. Coding Level of Care Code Acute Plastics And Composites Inspector for Brady Curry Diagnoses Autism spectrum disorder F84.0 Depression F32.A Acute anxiety F41.9
[2021-01-24] MEDS: trazodone 50 mg Tablet PO (19:30)
[2021-01-24 20:07] VITALS: BP 139/88; PULSE 106; RESP 18; TEMP 36.6; O2SAT 98
--- NOTE | 2021-01-25 02:17 | PC.NURSE ---
Patient awake at start of shift. Isolative to room with minimal interaction with peers. Denied SI/HI or AVH. Took PRN Trazodone with little effect. Took shower to help with sleep promotion to good effect. In bed at this time, resting with eyes closed. no signs of distress noted.
[2021-01-25 06:00] VITALS: BP 128/90; PULSE 84; RESP 16; TEMP 36.8; O2SAT 98
[2021-01-25] MEDS: duloxetine 30 mg Capsule PO ×2 (09:14→18:18)
[2021-01-25] MEDS: risperiDONE 1 mg Tablet PO (09:14)
[2021-01-25] MEDS: BuSPIRONE 10 mg Tablet 15 MG PO ×2 (09:14→19:58)
--- NOTE | 2021-01-25 11:37 | NPU.GN ---
[facility] Topic:Stress Map General Mood of Group: Abril did attend group and participated as well. Abril was very chatty in group with others asking for guidance and advice, as far as confucianist choices and how to control her anxiety. After this field underwriter and other patients provided Abril advice she seemed to calm down and not be as anxious. Abril reported to this field underwriter that she does not know why she has anxiety some times out of no where. This field underwriter provided Abril with advice that if she is adhering to taking her medication that the medication will help her. To try an utilize the resources , tools, and knowledge that she learns in groups, from the doctors and nurses, and use her coping skills as needed for her anxiety and depression that things will get better.
[2021-01-25] MEDS: hyDROXYzine 25 mg Capsule 50 MG PO (13:45)
[2021-01-25 13:46] VITALS: BP 115/72; PULSE 109; RESP 18; TEMP 37.2; O2SAT 96
[2021-01-25] MEDS: polyethylene glycol 3350 Pkt 17 gm PO (17:02)
--- NOTE | 2021-01-25 17:37 | P.PN_ITS ---
Subjective NPU Subjective: Interval history: We talked during our treatment team meeting about the patient's progress. I relayed what the patient told me yesterday, that she gets symptomatic when she is off her medication for some period of time. She recently stopped duloxetine prior to this current relapse. She gets that she needs to take her medication regularly. Also, there is a plan called 340b, in which a pharmacy can charge less for medication. The patient says that she felt she was awake all night last night, even after taking Trazodone. The nurses report that she slept much of the night. She is eating great. She says that this morning she was doing really well, she was pleasant and her anxiety was low. She felt she might be getting close to being able to go home. However the anxiety intensified a little later when we did a fire drill and the fire alarms when off. She says she is hearing a weird buzzing in her ears. She also talked about a visit from a jainism audio tape librarian, who she did not know. She says that she likes him and he said he would come back. Mental Status Exam MSE Comments: I met with the patient on the bench by the nurses' station. She was dressed in hospital scrubs and more neatly groomed. She was only mildly emotionally dysregulated at times, but also had periods of being more emotionally regulated. Eye contact was improved. She had no psychomotor agitation or retardation. Speech was pressured at times. Alert, oriented to person, place, time, and situation. Attention and concentration were fair. Memory is intact to formal testing, but she says she has trouble remembering things in her daily life. Mood is depressed and anxious but improved. Affect is anxious but also calms down. Thought process is logical and goal-directed. Thought content: Denies auditory and visual hallucinations. No delusions or paranoia are noted. She has suicidal ideation, but no homicidal ideation. Fund of knowledge is intact to exam. Language is intact to exam. Insight and judgment appear to be somewhat limited. Impulse control is limited as well. Vitals/I&O/Wt Last Vital Signs Temp 98.9 F 01/25/21 13:46 Pulse 109 H 01/25/21 13:46 Resp 18 01/25/21 13:46 BP 115/72 01/25/21 13:46 Pulse Ox 96 01/25/21 13:46 Data NPU : 01/21/21 21:50 01/21/21 21:50 A&P Assessment and plan (1) Autism spectrum disorder: Status: Acute (2) Depression: Status: Acute (3) Acute anxiety: Status: Acute Additional A&P Information This is a 25 year old female with a history of about 5 previous psychiatric admissions for depression, anxiety, and severe anger, including an admission here from 01/15?01/17/2021 after taking too many of her duloxetine tablets. She admitted for depression, anxiety and suicidal ideation. We will need to rule out cluster B phenomena. She apparently has had a diagnosis of Asperger's disorder in the past, which may explain her perseverative thinking. We will add a diagnosis of autism spectrum disorder. RECOMMENDATION AND PLAN: 1. Continue current medication, BuSpar 15 mg twice daily for anxiety. We will increase Risperdal to 1.5 mg twice daily for autism spectrum irritability, mood stabilization, and anxiety. We will increase duloxetine to 30 mg twice daily for depression and anxiety. We will increase trazodone to 75 mg as needed for insomnia. 2. Continue every 15 minute checks for safety. 3. Encourage individual, group and milieu therapies. 4. Refer the patient for outpatient treatment, including DBT therapy if possible. Involuntary Hold Information 96 Hour Hold: 96 Hour Involuntary Admission: No Attestations NPU Medical Necessity Statement*: Psychiatric hospitalization is medically necessary to prevent access to lethal means, to reevaluate medication, and to coordinate a safe discharge. Likely length of stay is 2-4 days. Coding Level of Care Code Acute Pipe Smoking Machine Offbearer for Brady Curry Diagnoses Autism spectrum disorder F84.0 Depression F32.A Acute anxiety F41.9
[2021-01-25] MEDS: trazodone 50 mg Tablet 75 MG PO (19:59)
[2021-01-25] MEDS: risperiDONE 1 mg Tablet 1.5 MG PO (19:59)
[2021-01-25 20:12] VITALS: BP 91/52; PULSE 80; RESP 15; TEMP 36.7; O2SAT 96
[2021-01-26 05:49] VITALS: BP 104/67; PULSE 90; RESP 15; TEMP 36.5; O2SAT 98
--- NOTE | 2021-01-26 06:30 | PC.NURSE ---
Patient calm and cooperative at start of shift. Denies any SI/HI, AVH. Reports improvement of anxiety and depression both. Improved affect, smiling. Patient resting with eyes closed throughout night. No complaints voiced. No signs of distress.
[2021-01-26] MEDS: duloxetine 30 mg Capsule PO ×2 (09:27→16:30)
[2021-01-26] MEDS: risperiDONE 1 mg Tablet 1.5 MG PO ×2 (09:27→20:59)
[2021-01-26] MEDS: BuSPIRONE 10 mg Tablet 15 MG PO ×2 (09:27→20:59)
--- NOTE | 2021-01-26 12:03 | NPU.GN ---
[facility] Topic:My Favorite Things General Mood of Group: Abril did attend group today. Abril did very well and participated by sharing with the group her favorite things that she likes to do that she finds therapeutic to her. Abril seemed to be in a good mood and mindset today.
[2021-01-26] MEDS: hyDROXYzine 25 mg Capsule 50 MG PO (13:06)
--- NOTE | 2021-01-26 13:07 | PC.NURSE ---
MOVED PATIENT TO ROOM 151-1. PATIENT ASKED FOR VISTARIL FOR HER ANXIETY. MEDICATED WITH 50MG PER PRN ORDERS
[2021-01-26 14:00] VITALS: BP 125/80; PULSE 97; RESP 18; TEMP 37; O2SAT 98
--- NOTE | 2021-01-26 15:43 | PM.NPN ---
Subjective NPU Subjective: Interval history: I met with the patient and her grandmother. They both said that the patient was doing much better today. We talked about the patient's medication regimen. I emphasized that the patient needs to stay on her medication and this was music to the grandmother's ears. She has been telling the patient this for a number of years. Mood is improved and anxiety is decreased. No side effects on duloxetine or Risperdal. Mental Status Exam MSE Comments: I met with the patient on the bench by the nurses' station. She was dressed in hospital scrubs and more neatly groomed. No emotional dysregulation noted. Eye contact was improved. She had no psychomotor agitation or retardation. Speech was at a regular rate and rhythm without pressure. Alert, oriented to person, place, time, and situation. Attention and concentration were fair. Memory is intact to formal testing, but she says she has trouble remembering things in her daily life. Mood is improved. Affect is pleasant and happy. Thought process is logical and goal-directed. Thought content: Denies auditory and visual hallucinations. No delusions or paranoia are noted. She has no suicidal or homicidal ideation. Fund of knowledge is intact to exam. Language is intact to exam. Insight and judgment appear to be improving. Impulse control is improving as well. Vitals/I&O/Wt Last Vital Signs Temp 97.7 F 01/26/21 05:49 Pulse 90 01/26/21 05:49 Resp 15 01/26/21 05:49 BP 104/67 01/26/21 05:49 Pulse Ox 98 01/26/21 05:49 Data NPU : 01/21/21 21:50 01/21/21 21:50 A&P Assessment and plan (1) Autism spectrum disorder: Status: Acute (2) Depression: Status: Acute (3) Acute anxiety: Status: Acute Additional A&P Information This is a 25 year old female with a history of about 5 previous psychiatric admissions for depression, anxiety, and severe anger, including an admission here from 01/15?01/17/2021 after taking too many of her duloxetine tablets. She admitted for depression, anxiety and suicidal ideation. We will need to rule out cluster B phenomena. She apparently has had a diagnosis of Asperger's disorder in the past, which may explain her perseverative thinking. We will add a diagnosis of autism spectrum disorder. RECOMMENDATION AND PLAN: 1. Continue current medication, BuSpar 15 mg twice daily for anxiety. We increased Risperdal to 1.5 mg twice daily for autism spectrum irritability, mood stabilization, and anxiety. We increased duloxetine to 30 mg twice daily for depression and anxiety. We increased trazodone to 75 mg as needed for insomnia. 2. Continue every 15 minute checks for safety. 3. Encourage individual, group and milieu therapies. 4. Refer the patient for outpatient treatment, including DBT therapy if possible. Involuntary Hold Information 96 Hour Hold: 96 Hour Involuntary Admission: No Attestations NPU Medical Necessity Statement*: Psychiatric hospitalization is medically necessary to prevent access to lethal means, to reevaluate medication, and to coordinate a safe discharge. Likely length of stay is 1-3 days. Coding Level of Care Code Acute Agent Telegrapher for Brady Curry Diagnoses Autism spectrum disorder F84.0 Depression F32.A Acute anxiety F41.9
[2021-01-26] MEDS: ibuprofen 800 mg tablet PO (16:30)
[2021-01-26] MEDS: polyethylene glycol 3350 Pkt 17 gm PO (16:31)
[2021-01-26] MEDS: trazodone 50 mg Tablet 75 MG PO (21:00)
[2021-01-26 21:30] VITALS: BP 121/75; PULSE 86; RESP 17; TEMP 36.6; O2SAT 98
[2021-01-27 06:00] VITALS: BP 120/68; PULSE 74; RESP 16; TEMP 36.6; O2SAT 98
[2021-01-27] MEDS: acetaminophen 325 mg Tablet 650 MG PO (06:37)
[2021-01-27] MEDS: BuSPIRONE 10 mg Tablet 15 MG PO (09:39)
[2021-01-27] MEDS: ibuprofen 800 mg tablet PO (09:39)
[2021-01-27] MEDS: duloxetine 30 mg Capsule PO (09:39)
[2021-01-27] MEDS: risperiDONE 1 mg Tablet 1.5 MG PO (09:39)
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
[2021-01-27] MEDS: hyDROXYzine 25 mg Capsule 50 MG PO (11:59)
--- NOTE | 2021-01-27 12:12 | NPU.GN ---
[facility] Unit Group Topic:Jenbob General Mood of Group: Abril attended group today and participated. Abril was in a great mindset and was helpful to another patient that was struggling with the group game of Michelle. Abril is excited to go home. Abril has been linked with [facility] services by this assembly instructions writer completing the intake forms with client.
[2021-01-27 12:31] VITALS: BP 120/68; PULSE 74; RESP 16; TEMP 36.6; O2SAT 98
== END 2021-01-27 13:43 | disposition home or self-care (01) | DRG 881 ==
LOC: ER 22:51 → NP 22:56
PROVIDERS: Admitting Provider Psychiatry & Neurology Child & Adolescent Psychiatry; Emergency Provider Emergency Medicine; Visit Provider Psychiatry & Neurology Child & Adolescent Psychiatry
DX: F32.A Depression, unspecified (principal); R45.851 Suicidal ideations; F84.0 Autistic disorder; F41.9 Anxiety disorder, unspecified; Z63.4 Disappearance and death of family member; T43.216A Underdosing of selective serotonin and norepinephrine reuptake inhibitors, initial encounter; Z91.120 Patient's intentional underdosing of medication regimen due to financial hardship; Z81.8 Family history of other mental and behavioral disorders; H54.40 Blindness, one eye, unspecified eye
CPT/HCPCS: 80048; 80306; 80307; 81025; 85025; 96372; 97150; 97165; 99285; J1200; J1630; J2060; Q0162

== ENCOUNTER 2021-02-09 20:58 | Emergency (ER) | payer SELFPAY ==
[2021-02-09 21:09] VITALS: BP 124/83; PULSE 92; RESP 18; TEMP 36.8; O2SAT 100; BMI 39.8
--- NOTE | 2021-02-09 22:48 | ED_ITS ---
HPI - General Adult General: Chief complaint: General Medical Stated complaint: Breasts are leaking, Never been Time Seen by Provider: 02/09/21 22:28 History of Present Illness: HPI narrative: Patient presents the ER with symptoms of wrist leakage over the last few days. Patient recently started Risperdal and noticed that breast leakage started after that. Patient has been on Cymbalta for a while. Patient states is clear fluids and not having any pain in her breast. No swelling or erythema either. MD complaint: Breast leakage Onset (ago): day(s) Associated symptoms: Reports no associated symptoms; Deny rash or vomiting Review of Systems Narrative: Patient is adamant that she has never had sexual contact and mother confirms this. They do not wish to have test done. That is impossible for her to be . Mother states that clear breast discharge can come from either breast. And it has been intermittent. No foul odor, no milky color and no tenderness noted. Eyes: Denies: eye discharge ENMT: Denies: throat pain, oral sores or nasal congestion Resp: Reports: non-productive cough; Denies: wheezing or stridor GI: Denies: vomiting or diarrhea Skin/Breast: Reports: nipple discharge (Clear fluid intermittent since starting new medications.); Denies: rash [facility] ED Female Reproductive History: Date of last menstrual period: 01/21/21 Physical Exam Const: COMMON NORMALS: no acute distress GENERAL APPEARANCE: cooperative Resp: COMMON NORMALS: normal respiratory effort Psych: COMMON NORMALS: mental status grossly normal MOOD & AFFECT: Yes anxious Skin: OTHER: Patient does have about a quarter size white area area on shirt right breast. Course Vital Signs: Vital signs: Vital Signs Temperature 98.2 F 02/09/21 21:09 Pulse Rate 84 02/09/21 22:53 Respiratory Rate 18 02/09/21 22:53 Blood Pressure 117/79 02/09/21 22:53 Pulse Oximetry 96 02/09/21 22:53 MDM - General Adult MDM Narrative: Medical decision making narrative: Consult is made for patient to establish primary care provider. Patient was also counseled to contact behavioral health care and find out when follow-up appointment is. Went over medications with mother and patient and side effects of medications. Discharge Plan Discharge Patient Disposition: Home Clinical Impression: Galactorrhea on both sides Adverse effect of drug/medicinal Qualifiers: Encounter type: initial encounter Qualified Code(s): T50.905A - Adverse effect of unspecified drugs, medicaments and biological substances, initial encounter Condition: Stable Prescriptions: No Action ibuprofen 800 mg tablet 800 mg PO BID PRN (Reason: Pain (Scale Score 4-6)) RF: 0 propranolol 20 mg Tablet 20 mg PO TID PRN (Reason: Anxiety) 30 Days Qty: 90 RF: 1 duloxetine 30 mg Capsule,Delayed Release(Dr/Ec) 30 mg PO BID 30 Days Qty: 60 RF: 0 polyethylene glycol 3350 17 gram Powder In Packet 17 g PO BID PRN (Reason: Constipation) 30 Days Qty: 100 RF: 0 risperidone 1 mg Tablet 1.5 mg PO 0900,2100 30 Days Qty: 90 RF: 0 trazodone 50 mg Tablet 75 mg PO BEDTIME 30 Days Qty: 30 RF: 0 bacitracin 500 unit/gram ointment 1 applic topical TID PRN (Reason: Rash) 30 Days Qty: 28.4 RF: 0 buspirone 10 mg Tablet 15 mg PO 0900,2100 30 Days Qty: 90 RF: 1 hydroxyzine pamoate 25 mg Capsule 50 mg PO Q6H PRN (Reason: Anxiety) 30 Days Qty: 120 RF: 1 Discharge Orders: Discharge ED (Routine); Ordered 02/09/21 Ordered By: Tim Hunter Discharge Diet: Usual diet Discharge Activity: Resume usual activity Activity Restrictions/Additional Instructions: Continue on present medications. Hospital contact you with a follow-up appointment for primary care provider. Contact the hospital in the morning and find out when your mental health follow-up appointment is. Increase fluid such as water and fiber in diet. Coding Level of Care Code ED Ocean Export Agent for Chg Fwd Exam Expanded Problem Focused
[2021-02-09 22:53] VITALS: BP 117/79; PULSE 84; RESP 18; O2SAT 96
--- NOTE | 2021-02-10 09:15 | DCPLANNER ---
artist and repertoire manager had message to speak with patient about getting established with a primary care physician. artist and repertoire manager called phone number [phone] - case consultant was unable to speak with patient.
== END 2021-02-09 22:54 | disposition home or self-care (01) ==
PROVIDERS: Emergency Provider Nurse Practitioner Family
DX: N64.3 Galactorrhea not associated with childbirth (principal); T50.905A Adverse effect of unspecified drugs, medicaments and biological substances, initial encounter
CPT/HCPCS: 99281

== ENCOUNTER 2021-02-14 14:45 | Inpatient (IN) | payer SELFPAY ==
[2021-02-14 14:55] VITALS: BP 155/119; PULSE 109; RESP 18; TEMP 36.8; O2SAT 98; BMI 38.7
--- NOTE | 2021-02-14 15:03 | W.ED.PSYCHS ---
HPI - Psych General: Chief Complaint: Psychiatric Symptoms Stated Complaint: SI Time Seen by Provider: 02/14/21 14:57 History of Present Illness: HPI Narrative: 26-year-old female see room complaints of suicidal ideation. She has mild autism. She is complaining of galactorrhea galactorrhea. She is depressed and expresses suicidal ideation. MD complaint: suicidal ideation and other (anxiety) Onset (ago): day(s) Duration: constant History of same: Yes Relieving factors: medication Exacerbating factors: other (social stressors) Associated symptoms: Reports depression and suicidal ideation; Deny auditory hallucinations, visual hallucinations, delusions, homicidal ideation or racing thoughts Treatments prior to arrival: none If self harm: admits thoughts of self harm and has plan Review of Systems Const: Denies: fever(s), chills, body aches, change in appetite, fatigue or malaise ENMT: Denies: throat pain, ear or mastoid pain, nasal discharge or nasal congestion Card: Denies: chest pain, edema, dyspnea on exertion or orthopnea Resp: Denies: dyspnea, productive cough or non-productive cough GI: Denies: abdominal pain, nausea, vomiting, hematemesis, coffee ground emesis, diarrhea, constipation, bloating, hematochezia or melena : Denies: flank pain, difficulty voiding, dysuria, urinary frequency or urinary urgency Skin/Breast: Denies: rash or pruritus Psych: Reports: depression and suicidal ideation; Denies: visual hallucinations, auditory hallucinations or homicidal ideation [facility] ED Female Reproductive History: Date of last menstrual period: 01/21/21 Physical Exam Const: COMMON NORMALS: no acute distress GENERAL APPEARANCE: cooperative and comfortable ORIENTATION/CONSCIOUSNESS: Yes awake, Yes oriented to person, Yes oriented to place and Yes oriented to time HENMT: COMMON NORMALS: normocephalic, atraumatic and hearing grossly normal bilaterally HEAD & SCALP: normocephalic and atraumatic Neck/C-Spine: COMMON NORMALS: no JVD Resp: COMMON NORMALS: normal respiratory effort, No retractions, No use of accessory muscles and clear to auscultation bilaterally AUSCULTATION: clear to auscultation bilaterally Cardio: COMMON NORMALS: no JVD, regular rate, regular rhythm and No murmurs present (Cardio) RATE: regular rate RHYTHM: regular rhythm GI: COMMON NORMALS: Soft to palpation and No hepatosplenomegaly present AUSCULTATION: Yes normoactive bowel sounds PALPATION: Yes Soft to palpation, No Tenderness to palpation present (GI), No Guarding due to palpation present (GI) and Yes No hepatosplenomegaly present Extremity: COMMON NORMALS: normal to inspection, capillary refill normal, no clubbing, cyanosis or edema, no calf tenderness and no pedal edema Neuro: SENSORIUM/ORIENTATION: Yes oriented to person, Yes oriented to place and Yes oriented to time Psych: THOUGHT CONTENT: No delusions Skin: COMMON NORMALS: no rashes or lesions noted GENERAL SKIN EXAM: no rashes or lesions noted Course Vital Signs: Vital signs: Vital Signs Temperature 98.0 F 02/17/21 06:00 Pulse Rate 86 02/17/21 06:00 Respiratory Rate 18 02/17/21 06:00 Blood Pressure 117/82 02/17/21 06:00 Pulse Oximetry 97 02/17/21 06:00 MDM - Psych MDM Narrative: Medical decision making narrative: Discussed with Dr. Jama. She has severe acute anxiety in addition to these suicidal ideation. Orders written will admit. Discharge Plan Discharge Patient Disposition: Admitted As Inpatient Admit Provider: Eren Jama Clinical Impression: Acute anxiety, Autism spectrum disorder, Suicidal ideation Condition: Stable Coding Level of Care Code ED Subcontract Administrator for Chg Fwd Exam Comprehensive
[2021-02-14] MEDS: LORazepam 2 mg/mL INJ 1 mL IVP (15:43)
[2021-02-14 15:48] VITALS: BP 140/77; PULSE 77; RESP 17; TEMP 36.9; O2SAT 97
[2021-02-14 16:00] LABS: Basophils # 0.1 10^3/uL (0.0-0.1); Basophils % 0.7 %; Eosinophils % 0.3 %; Hematocrit 42.8 % (37.0-47.0); Hemoglobin 14.9 g/dL (11.5-15.3); Lymphocytes # 1.4 10^3/uL (0.8-4.8); Lymphocytes % 11.6 %; Mean Corpuscular HGB Conc 34.8 g/dL (30.0-36.0); Mean Corpuscular Hemoglobin 30.6 pg (28.0-34.0); Mean Corpuscular Volume 87.9 fl (81-99); Mean Platelet Volume 9.3 fL (7.4-10.4); Monocytes # 0.6 10^3/uL (0.2-0.9); Neutrophils # 9.71 10^3/uL (1.8-7.7); Neutrophils % 82.1 %; Nucleated Red Blood Cells % 0 %; Platelet Count 301 10^3/cmm (130-400); Red Blood Count 4.87 10^6/uL (4.1-5.3); Red Cell Distribution Width 12.7 % (12.1-15.1); White Blood Count 11.8 10^3/uL (4.0-10.0)
[2021-02-14 16:16] LABS: HCG, Serum Qual Negative (Negative)
[2021-02-14 16:18] VITALS: BP 135/97; PULSE 100; RESP 18; TEMP 36.6; O2SAT 99
[2021-02-14 16:22] LABS: Alanine Aminotransferase 18 U/L (0-33); Albumin Level 4.9 g/dL (3.5-5.2); Alkaline Phosphatase 107 IU/L (35-105); Anion Gap 24.6 (5-19); Aspartate Amino Transferase 14 U/L (0-32); Blood Urea Nitrogen 7 mg/dL (6-20); Calcium 10.1 mg/dL (8.5-10.5); Carbon Dioxide 17 mmol/L (22-29); Chloride 98 mmol/L (98-107); Globulin 3.6 g/dL (1.3-4.6); Glomerular Filtration Rate 102.8 mL/min (90-130); Glucose 82 mg/dL (65-115); Osmolality Calculated 279 mOsm/kg (285-295); Potassium 3.6 mmol/L (3.5-5.1); Sodium 136 mmol/L (136-145); Total Bilirubin 0.5 mg/dL (0.15-1.2); Total Protein 8.5 g/dL (6.6-8.7)
[2021-02-14 16:23] LABS: Acetaminophen < 5.0 ug/mL (10-30); Salicylate < 0.3 mg/dL (3-10)
[2021-02-14] MEDS: hyDROXYzine 25 mg Capsule 50 MG PO (18:18)
--- NOTE | 2021-02-14 18:18 | PC.NURSE ---
PRN VISTARIL 50 MG GIVEN PO PER PT C/O STATED ANXIETY
[2021-02-14 20:56] VITALS: BP 120/72; PULSE 114; RESP 17; TEMP 36.8; O2SAT 98
[2021-02-15 06:00] VITALS: BP 91/56; PULSE 74; RESP 19; TEMP 36.9; O2SAT 98
--- NOTE | 2021-02-15 06:01 | PC.NURSE ---
Resting in bed at start of shift. Calm and cooperative. Answered questions appropriately. Endorsed current SI but with no plan or intent. Agreed to tell staff if this increases or changes. Denies AVH and HI. Has remained in bed resting with eyes closed throughout night.
[2021-02-15] MEDS: ibuprofen 800 mg tablet PO (09:47)
[2021-02-15] MEDS: duloxetine 30 mg Capsule PO ×2 (09:48→18:17)
[2021-02-15] MEDS: BuSPIRONE 10 mg Tablet 15 MG PO ×2 (09:48→21:21)
[2021-02-15] MEDS: risperiDONE 1 mg Tablet 1.5 MG PO ×2 (09:48→21:20)
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
[2021-02-15] MEDS: OLANZapine 5 mg ODT PO (13:12)
--- NOTE | 2021-02-15 13:30 | NPU.GN ---
[facility] Group Topic: Coping Checkers General Mood of Group : Abril wanted to sleep and not come to group.
--- NOTE | 2021-02-15 13:46 | PC.NURSE ---
prn Pt crying and talked with nurse, pt asked that someone just please kill her x2 during the conversation, pt has been given Zyprexa Zydis 30 min's prior. Crying uncontrollably..... Charge nurse made the call to medicate this pt. Administered 2mg Haldol 2mg Ativan 2mg benadryl Will continue to monitor this pt.
[2021-02-15] MEDS: haloperidol inj 5 mg/mL INJ 1 mL IM (13:54)
[2021-02-15] MEDS: diphenhydrAMINE 50 mg/mL SDV 1mL IM (13:55)
[2021-02-15] MEDS: LORazepam 2 mg/mL INJ 1 mL IM (13:55)
[2021-02-15 14:00] VITALS: BP 124/82; PULSE 115; RESP 20; TEMP 36.8; O2SAT 96
[2021-02-15 17:15] LABS: Urine Color Yellow (Yellow)
[2021-02-15 17:16] LABS: Add Urine Microscopic? YES; Bilirubin Urine Neg (Negative); Blood Urine 2+ (Negative); Glucose Urine UA Norm (Normal); Ketones Urine 1+ (Negative); Leukocyte Esterase Urine Negative (Negative); Nitrate Urine Negative (Negative); Protein Urine Neg (Negative); Urine Appearance SL Hazy (CLEAR); Urobilinogen Urine Norm (Negative); pH Urine 6 (5-7)
[2021-02-15 17:18] LABS: Add Urine Culture? No; Bacteria Urine 1+ /hpf; RBC Urine 0-4 /hpf (0-2); WBC Urine 0-4 /hpf (0-5)
--- NOTE | 2021-02-15 17:41 | PC.NURSE ---
Late entry for 13:45 Patient was in room crying, I can't stop patient was scratching the top of her left hand with her right handed fingernails. Superficial scratches present. Patient continued to loudly cry and wail over unending cycle of worry, anxiety, unresolved grief over her grandfather and brother. Unable to de-escalate patient. Applied cool wet cloth to forehead, patient dry heaving. Plan to medicate with prn orders.
--- NOTE | 2021-02-15 17:44 | PC.NURSE ---
Late Entry 16:00. Abril was able to calm enough to participate in the last half of group and have a visitor. Her mother visited and also expressed concern over Abril's admissions. She does well in the hospital, and for 1-2 day and then crashes. She cannot stop crying and someone has to stay with her 24-7 so she doesn't hurt herself.
[2021-02-15 20:08] VITALS: RESP 17
[2021-02-15] MEDS: trazodone 50 mg Tablet 75 MG PO (21:19)
[2021-02-16 06:00] VITALS: BP 120/80; PULSE 74; RESP 17; O2SAT 99
[2021-02-16] MEDS: duloxetine 30 mg Capsule PO ×2 (09:00→17:42)
[2021-02-16] MEDS: BuSPIRONE 10 mg Tablet 15 MG PO ×2 (09:00→21:02)
[2021-02-16 09:56] LABS: Prolactin 109.6 ng/mL (4.8-23.3)
--- NOTE | 2021-02-16 10:36 | PC.NURSE ---
david meet with miss gan this morning, good visit.
[2021-02-16 13:00] VITALS: BMI 38.7
[2021-02-16] MEDS: hyDROXYzine 25 mg Capsule 50 MG PO (13:12)
[2021-02-16 14:00] VITALS: BP 120/80; PULSE 74; RESP 17; TEMP 36.8; O2SAT 99
--- NOTE | 2021-02-16 15:35 | P.NPUPN_ITS ---
Mental Status Exam MSE Comments: This is an obese versus morbidly obese, white female, in green hospital scrubs, with limited grooming and limited eye contact. Normal psychomotor activity with no abnormal movements. Cooperative with exam in mild distress. Speech was decreased rate and volume. Mood described as depressed and anxious; affect congruent, tearful at times. Thought process, organized. Thought content: patient reports that she often has suicidal thoughts but denies homicidal ideation.Attention, concentration, and memory appear intact but none were formally tested. She is alert and oriented times three. Insight and judgment are fair. Impulse control appears limited. Vitals/I&O/Wt Last Vital Signs Temp 98.2 F 02/16/21 14:00 Pulse 74 02/16/21 14:00 Resp 17 02/16/21 14:00 BP 120/80 02/16/21 14:00 Pulse Ox 99 02/16/21 14:00 Data NPU : 02/14/21 15:41 02/14/21 15:41 A&P Assessment and plan (1) Adverse effect of drug/medicinal: Status: Acute Qualifiers: Encounter type: initial encounter Qualified Code(s): T50.905A - Adverse effect of unspecified drugs, medicaments and biological substances, initial encounter (2) Galactorrhea on both sides: Status: Acute (3) Suicidal ideation: Status: Acute (4) Autism spectrum disorder: Status: Acute (5) Acute anxiety: Status: Acute Additional A&P Information This is a 25 year old female with a history of about 5 previous psychiatric admissions for depression, anxiety, and severe anger, including 2 previous admissions in December who presents with depression, anxiety and suicidal ideation and likely galactorrhea from her Risperdal. RECOMMENDATION AND PLAN: 1. Continue current medication except increase the Cymbalta to 60 mg twice a day and add Geodon 40 mg twice a day with food 2. Continue every 15 minute checks for safety. 3. Encourage individual, group and milieu therapies. 4. Encourage the patient follow-up with outpatient treatment, including DBT therapy if possible. Involuntary Hold Information 96 Hour Hold: 96 Hour Involuntary Admission: No Attestations NPU Medical Necessity Statement*: Inpatient hospitalization is medically necessary and the clinically appropriate intervention at this time. We will initiate medications and make changes as indicated. 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
[2021-02-16] MEDS: acetaminophen 325 mg Tablet 650 MG PO (15:45)
[2021-02-16] MEDS: docusate sodium 100 mg Capsule PO (18:38)
[2021-02-16 19:57] VITALS: BP 116/70; PULSE 89; RESP 17; O2SAT 99
[2021-02-16] MEDS: trazodone 50 mg Tablet 75 MG PO (21:02)
[2021-02-17 06:00] VITALS: BP 117/82; PULSE 86; RESP 18; TEMP 36.7; O2SAT 97
[2021-02-17] MEDS: docusate sodium 100 mg Capsule PO ×2 (08:42→17:49)
[2021-02-17] MEDS: BuSPIRONE 10 mg Tablet 15 MG PO ×2 (08:43→20:08)
[2021-02-17] MEDS: duloxetine 30 mg Capsule PO (08:43)
[2021-02-17] MEDS: OLANZapine 5 mg ODT PO (09:26)
--- NOTE | 2021-02-17 10:50 | PC.NURSE ---
prn 0926 Pt crying without ceasing, states that she just wants to , she doesn't want to feel like this anymore. Administered 5mg Zyprexa Zydis. Will continue to monitor pt.
--- NOTE | 2021-02-17 12:40 | P.NPUPN_ITS ---
Subjective NPU Subjective: Interval history: She was found in bed at 12:15 PM. She said that she is not doing well. She had an episode this morning where she was very anxious and depressed. She felt like she wanted to . She said that she does not know what precipitated this event. She denied having wishes to kill herself but did not want to be alive at that moment. She says that she does not want to be alive at this time. She wants to get better. Geodon 40 mg twice a day was just started yesterday and Cymbalta was just increased as of today. Hopefully those will start working soon. Mental Status Exam MSE Comments: This is an obese versus morbidly obese, white female, in [facility] scrubs, with limited grooming and limited eye contact. Normal psychomotor activity with no abnormal movements. Cooperative with exam in mild distress. Speech was decreased rate and volume. Mood described as depressed and anxious; affect congruent, tearful at times. Thought process, organized. Thought content: patient reports that she often has suicidal thoughts but denies homicidal ideation.Attention, concentration, and memory appear intact but none were formally tested. She is alert and oriented times three. Insight and judgment are fair. Impulse control appears limited. Vitals/I&O/Wt Last Vital Signs Temp 98.0 F 02/17/21 06:00 Pulse 86 02/17/21 06:00 Resp 18 02/17/21 06:00 BP 117/82 02/17/21 06:00 Pulse Ox 97 02/17/21 06:00 Weight last 48 hrs Weight 115.666 kg Data NPU : 02/14/21 15:41 02/14/21 15:41 A&P Assessment and plan (1) Adverse effect of drug/medicinal: Status: Inactive Qualifiers: Encounter type: initial encounter Qualified Code(s): T50.905A - Adverse effect of unspecified drugs, medicaments and biological substances, initial encounter (2) Galactorrhea on both sides: Status: Inactive (3) Suicidal ideation: Status: Acute (4) Autism spectrum disorder: Status: Acute (5) Acute anxiety: Status: Acute Additional A&P Information This is a 25 year old female with a history of about 5 previous psychiatric admissions for depression, anxiety, and severe anger, including 2 previous admissions in December who presents with depression, anxiety and suicidal ideation and likely galactorrhea from her Risperdal. RECOMMENDATION AND PLAN: 1. Continue current medication including Trazodone 75 mg QHS, BuSpar 15 mg BID, Cymbalta to 60 mg twice a day and Geodon 40 mg twice a day with food 2. Continue every 15 minute checks for safety. 3. Encourage individual, group and milieu therapies. 4. Encourage the patient follow-up with outpatient treatment, including DBT the rapy if possible. Involuntary Hold Information 96 Hour Hold: 96 Hour Involuntary Admission: No Attestations NPU Medical Necessity Statement*: Inpatient hospitalization is medically necessary and the clinically appropriate intervention at this time. We will initiate medications and make changes as indicated. 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
--- NOTE | 2021-02-17 13:01 | NPU.GN ---
[facility] Group Topic: Coping Bingo General Mood of Group: Patient did not come to group today.
[2021-02-17 14:00] VITALS: BP 117/82; PULSE 86; RESP 18; TEMP 36.7; O2SAT 97
[2021-02-17] MEDS: ziprasidone hcl 40 mg Capsule PO (17:00)
[2021-02-17] MEDS: duloxetine 30 mg Capsule 60 MG PO (17:49)
[2021-02-17] MEDS: trazodone 50 mg Tablet 75 MG PO (20:08)
[2021-02-17 21:30] VITALS: BP 141/79; PULSE 135; RESP 18; TEMP 36.7; O2SAT 97
[2021-02-18 06:00] VITALS: BP 110/72; PULSE 104; RESP 18; TEMP 36.7; O2SAT 100
[2021-02-18] MEDS: BuSPIRONE 10 mg Tablet 15 MG PO ×3 (09:51→21:03)
[2021-02-18] MEDS: ziprasidone hcl 40 mg Capsule PO ×2 (09:51→17:16)
[2021-02-18] MEDS: docusate sodium 100 mg Capsule PO ×2 (09:52→17:30)
[2021-02-18] MEDS: duloxetine 30 mg Capsule 60 MG PO ×2 (09:53→17:30)
[2021-02-18] MEDS: hyDROXYzine 25 mg Capsule 50 MG PO (12:08)
[2021-02-18 14:00] VITALS: BP 125/80; PULSE 89; RESP 20; TEMP 37.2; O2SAT 99
--- NOTE | 2021-02-18 14:43 | W.PM.NPUPNS ---
Subjective NPU Subjective: Interval history: She continues to say his her anxiety is terrible especially in the morning. She said it is terrible and she cannot live like this. She is only on 30 mg of BuSpar. We will try and increase that to 45 mg. She also wanted something to take in the morning. Vistaril does not work well for her. We will try some Seroquel. She was crying this morning as I passed by her door. She continues to be fairly anxious this afternoon. Mental Status Exam MSE Comments: This is an obese, white female, in [facility] scrubs, with limited grooming and good eye contact. Normal psychomotor activity with no abnormal movements. Cooperative with exam in mild distress. Speech was normal rate and volume. Mood described as depressed and anxious; affect congruent, tearful at times. Thought process, organized. Thought content: patient reports that she often has suicidal thoughts but denies homicidal ideation.Attention, concentration, and memory appear intact but none were formally tested. She is alert and oriented times three. Insight and judgment are fair. Impulse control appears limited. Vitals/I&O/Wt Last Vital Signs Temp 98.0 F 02/18/21 06:00 Pulse 104 H 02/18/21 06:00 Resp 18 02/18/21 06:00 BP 110/72 02/18/21 06:00 Pulse Ox 100 02/18/21 06:00 Data NPU : 02/14/21 15:41 02/14/21 15:41 A&P Assessment and plan (1) Adverse effect of drug/medicinal: Status: Inactive Qualifiers: Encounter type: initial encounter Qualified Code(s): T50.905A - Adverse effect of unspecified drugs, medicaments and biological substances, initial encounter (2) Galactorrhea on both sides: Status: Inactive (3) Suicidal ideation: Status: Acute (4) Autism spectrum disorder: Status: Acute (5) Acute anxiety: Status: Acute Additional A&P Information This is a 25 year old female with a history of about 5 previous psychiatric admissions for depression, anxiety, and severe anger, including 2 previous admissions in December who presents with depression, anxiety and suicidal ideation and likely galactorrhea from her Risperdal. RECOMMENDATION AND PLAN: 1. Continue current medication including Trazodone 75 mg QHS, Cymbalta to 60 mg twice a day and Geodon 40 mg twice a day with food. Increase BuSpar to 15 mg 3 times a day. 2. Continue every 15 minute checks for safety. 3. Encourage individual, group and milieu therapies. 4. Encourage the patient follow-up with outpatient treatment, including DBT therapy if possible. Involuntary Hold Information 96 Hour Hold: 96 Hour Involuntary Admission: No Attestations NPU Medical Necessity Statement*: Inpatient hospitalization is medically necessary and the clinically appropriate intervention at this time. We will initiate medications and make changes as indicated Coding Level of Care Code Acute Supplier Quality for [facility] Fwd Diagnoses Adverse effect of drug/medicinal T50.075F Encounter type: initial encounter Galactorrhea on both sides N64.3 Suicidal ideation R45.851 Autism spectrum disorder F84.0 Acute anxiety F41.9
[2021-02-18 20:41] VITALS: BP 123/75; PULSE 86; RESP 18; TEMP 36.6; O2SAT 99
[2021-02-18] MEDS: trazodone 50 mg Tablet 75 MG PO (21:03)
[2021-02-19 06:00] VITALS: BP 92/46; PULSE 70; RESP 16; TEMP 36.5; O2SAT 98; BMI 38.7
[2021-02-19] MEDS: ziprasidone hcl 40 mg Capsule PO ×2 (06:48→16:39)
--- NOTE | 2021-02-19 07:32 | W.PM.NPUPNS ---
Subjective NPU Subjective: Interval history: She said that she is doing somewhat better. She did fairly well last night. She said that she is less anxious today than she has been. She has not felt the need to take the Seroquel. She continues to have concerns about regressing when she leaves. She said that her mother also suffers from anxiety but has not had treatment. She is frequently irritable. The patient is also irritable when she is anxious. She says that she has constipation despite taking Dulcolax twice daily for the last few days. We will try some MiraLAX. She also wanted to lump her medication so that she is not taking them 5 times a day. We will change the twice daily medications to match of the Geodon time. Mental Status Exam MSE Comments: This is an obese, white female, in [facility] scrubs, with limited grooming and good eye contact. Normal psychomotor activity with no abnormal movements. Cooperative with exam in mild distress. Speech was normal rate and volume. Mood described as depressed and anxious; affect congruent, not tearful. Thought process, organized. Thought content: Denies suicidal thoughts at this time. denies homicidal ideation.Attention, concentration, and memory appear intact but none were formally tested. She is alert and oriented times three. Insight and judgment are fair. Impulse control appears limited. Cognition: Patient Appearance: Appropriate Level of Consciousness: Awake, Alert and Follows Commands Patient Cognition Impaired: No Ability to Follow Directions: Fair Patient Orientation (long list): Person, Place, Time and Birthday Comprehension Ability: No Impairment Hallucination Type: None Delusion Description: Not Present Thought Process: Indecisive Affect: Affect Description: Appropriate and Calm Depressive Symptoms: Back Pain, Changes in Appetite, Crying Spells, Difficulty Concentrating, Difficulty Sleeping, Difficulty Making Decisions, Feelings of Worthlessness, Hopelessness, Insomnia, Increased Anxiety, Increased Fatigue, Increased Irritability, Loss of Energy, Loss of Interest in Activities, Low Self Esteem, Muscle Pain, Muscle Tension, Significant Weight Loss, Recurrent Thoughts of or Suicide, Unexplained Stomach Pain and Unhappiness Behavior: Patient Behavior: Appropriate and Cooperative Speech Pattern: Appropriate and Clear Vitals/I&O/Wt Last Vital Signs Temp 97.7 F 02/19/21 06:00 Pulse 70 02/19/21 06:00 Resp 16 02/19/21 06:00 BP 92/46 02/19/21 06:00 Pulse Ox 98 11/21/21 06:00 Weight last 48 hrs Weight 115.666 kg Data NPU : 02/14/21 15:41 02/14/21 15:41 A&P Assessment and plan (1) Adverse effect of drug/medicinal: Status: Inactive Qualifiers: Encounter type: initial encounter Qualified Code(s): T50.905A - Adverse effect of unspecified drugs, medicaments and biological substances, initial encounter (2) Galactorrhea on both sides: Status: Inactive (3) Suicidal ideation: Status: Acute (4) Autism spectrum disorder: Status: Acute (5) Acute anxiety: Status: Acute Additional A&P Information This is a 25 year old female with a history of about 5 previous psychiatric admissions for depression, anxiety, and severe anger, including 2 previous admissions in December who presents with depression, anxiety and suicidal ideation and likely galactorrhea from her Risperdal. RECOMMENDATION AND PLAN: 1. Continue current medication including Trazodone 75 mg QHS, Cymbalta to 60 mg twice a day and Geodon 40 mg twice a day with food and BuSpar to 15 mg 3 times a day. 2. Continue every 15 minute checks for safety. 3. Encourage individual, group and milieu therapies. 4. Encourage the patient follow-up with outpatient treatment, including DBT therapy if possible. Involuntary Hold Information 96 Hour Hold: 96 Hour Involuntary Admission: No Attestations NPU Medical Necessity Statement*: Inpatient hospitalization is medically necessary and the clinically appropriate intervention at this time. We will initiate medications and make changes as indicated Coding Level of Care Code Acute Coding Specialist Home Health for [facility] Diagnoses Adverse effect of drug/medicinal T50.905A Encounter type: initial encounter Galactorrhea on both sides N64.3 Suicidal ideation R45.851 Autism spectrum disorder F84.0 Acute anxiety F41.9
[2021-02-19] MEDS: duloxetine 30 mg Capsule 60 MG PO ×2 (09:30→16:39)
[2021-02-19] MEDS: polyethylene glycol 3350 Pkt 17 gm PO ×2 (09:30→16:42)
[2021-02-19] MEDS: docusate sodium 100 mg Capsule PO ×2 (09:31→16:39)
[2021-02-19] MEDS: BuSPIRONE 10 mg Tablet 15 MG PO ×3 (09:31→21:01)
[2021-02-19] MEDS: quetiapine 25 mg Tablet 50 MG PO (11:43)
[2021-02-19 14:00] VITALS: BP 125/71; PULSE 89; RESP 18; TEMP 36.1; O2SAT 99
[2021-02-19 20:57] VITALS: BP 125/88; PULSE 79; RESP 15; TEMP 36.6; O2SAT 99
[2021-02-19] MEDS: trazodone 50 mg Tablet 75 MG PO (21:01)
[2021-02-20 06:00] VITALS: BP 102/52; PULSE 84; RESP 16; TEMP 36.6; O2SAT 90
[2021-02-20] MEDS: duloxetine 30 mg Capsule 60 MG PO ×2 (06:33→16:43)
[2021-02-20] MEDS: BuSPIRONE 10 mg Tablet 15 MG PO ×3 (06:33→20:32)
[2021-02-20] MEDS: ziprasidone hcl 40 mg Capsule PO (06:33)
[2021-02-20] MEDS: docusate sodium 100 mg Capsule PO ×2 (06:34→16:42)
[2021-02-20] MEDS: quetiapine 25 mg Tablet 50 MG PO (12:18)
--- NOTE | 2021-02-20 13:29 | NPU.GN ---
[facility] Topic:Psychiatric Education General Mood of Group: Abril did not attend or participate in group today.
--- NOTE | 2021-02-20 13:41 | P.NPUPN_ITS ---
Subjective NPU Subjective: Interval history: She did well yesterday morning until the afternoon. She talked with her grandmother over the phone. She says every time her grandmother leaves she gets upset because she thinks that she is going to . She was very tearful after the phone call. Today she is upset because her 2 younger sisters who live in [place] are here and she cannot see them because she is in the hospital. They are leaving this afternoon. She became very tearful after she talked with them on the phone. She told the nurses that she wanted to . She scratched her hand with her fingernails making some scratches and ointment was applied. She is very discouraged by this setback. She agreed to try increasing the Geodon to 60 mg. We talked about maybe trying lithium after that. She said she took lithium 1 time and the first day she was awful. She would be willing to try it again. Mental Status Exam MSE Comments: This is a overweight female of about the stated age who is in mild distress. She is fairly groomed in hospital scrubs. She has been very tearful several times during the day. psychomotor activity mildly increased. Speech is at a regular rate and rhythm, normal volume, good articulation, not pressured. Alert, oriented X3 Attention and concentration seem to be intact. Memory is intact Mood is depressed. Affect is moderately dysphoric she was not crying at this time but has not cried several times earlier today. Thought process is logical and goal-directed. Thought content: Denies auditory and visual hallucinations. No delusions or paranoia are noted. No current suicidal ideation, and no homicidal ideation. Fund of knowledge is within normal limits. Insight and judgment appear to be fair. Impulse control is fair as well. Cognition: Patient Appearance: Appropriate Level of Consciousness: Awake, Alert and Follows Commands Patient Cognition Impaired: No Ability to Follow Directions: Fair Patient Orientation (long list): Person, Name and Birthday Comprehension Ability: No Impairment Hallucination Type: None Delusion Description: Not Present Thought Process: Appropriate Affect: Affect Description: Depressed and Sad Depressive Symptoms: Back Pain, Changes in Appetite, Crying Spells, Difficulty Concentrating, Difficulty Sleeping, Difficulty Making Decisions, Feelings of Worthlessness, Hopelessness, Insomnia, Increased Anxiety, Increased Fatigue, Increased Irritability, Loss of Energy, Loss of Interest in Activities, Low Self Esteem, Muscle Pain, Muscle Tension, Significant Weight Loss, Recurrent Thoughts of or Suicide, Unexplained Stomach Pain and Unhappiness Behavior: Patient Behavior: Cooperative Speech Pattern: Clear Vitals/I&O/Wt Last Vital Signs Temp 97.9 F 02/20/21 06:00 Pulse 84 02/20/21 06:00 Resp 16 02/20/21 06:00 BP 102/52 02/20/21 06:00 Pulse Ox 90 02/20/21 06:00 Weight last 48 hrs Weight 115.666 kg Data NPU : 02/14/21 15:41 02/14/21 15:41 A&P Assessment and plan (1) Adverse effect of drug/medicinal: Status: Inactive Qualifiers: Encounter type: initial encounter Qualified Code(s): T50.905A - Adverse effect of unspecified drugs, medicaments and biological substances, initial encounter (2) Galactorrhea on both sides: Status: Inactive (3) Suicidal ideation: Status: Acute (4) Autism spectrum disorder: Status: Acute (5) Acute anxiety: Status: Acute Involuntary Hold Information 96 Hour Hold: 96 Hour Involuntary Admission: No Attestations NPU Medical Necessity Statement*: Inpatient hospitalization is medically necessary and the clinically appropriate intervention at this time. We will initiate medications and make changes as indicated. Coding Level of Care Code Acute Quality Control Tech [employer] for [facility] Diagnoses Adverse effect of drug/medicinal T50.905A Encounter type: initial encounter Galactorrhea on both sides N64.3 Suicidal ideation R45.851 Autism spectrum disorder F84.0 Acute anxiety F41.9
[2021-02-20 14:00] VITALS: BP 120/71; PULSE 83; RESP 16; TEMP 36.3; O2SAT 100
[2021-02-20] MEDS: ziprasidone hcl 60 mg Capsule PO (16:45)
[2021-02-20] MEDS: trazodone 50 mg Tablet 75 MG PO (20:32)
[2021-02-20 21:21] VITALS: BP 96/62; PULSE 71; RESP 16; TEMP 36.9; O2SAT 97
[2021-02-21 06:00] VITALS: BP 92/58; PULSE 67; RESP 17; TEMP 36.7; O2SAT 99
[2021-02-21] MEDS: ziprasidone hcl 60 mg Capsule PO ×2 (06:30→17:31)
[2021-02-21] MEDS: docusate sodium 100 mg Capsule PO ×2 (06:30→17:31)
[2021-02-21] MEDS: BuSPIRONE 10 mg Tablet 15 MG PO ×3 (06:30→20:42)
[2021-02-21] MEDS: duloxetine 30 mg Capsule 60 MG PO ×2 (06:30→17:31)
--- NOTE | 2021-02-21 12:35 | NPU.GN ---
[facility] Topic:roup Topic: What are we Thankful For General Mood of Group: Abril did attend group and participated . She was social and in a good mindset. Her hygiene is lacking some his hair was a mess and not groomed. Abril did show signs of anxiety through out group when a male patient was being disruptive in group.
--- NOTE | 2021-02-21 13:59 | P.NPUPN_ITS ---
Subjective NPU Subjective: Interval history: She said that she is doing better today. I do not know why . She asked if maybe her crying is a side effect of the medication. She was assured that it was not. She is very worried that her progress will backslide again like it did yesterday. She was assured that yesterday was a special circumstance with not being able to see her siblings. We just started the increased dose of Geodon today and that needs some time to work. Mental Status Exam MSE Comments: This is a overweight female of about the stated age who is in no acute distress. She is fairly groomed in hospital scrubs. She has not been tearful today.. psychomotor activity mildly increased. Speech is at a regular rate and rhythm, normal volume, good articulation, not pressured. Alert, oriented X3 Attention and concentration seem to be intact. Memory is intact Mood is depressed. Affect is mildly dysphoric she was not crying. Thought process is logical and goal-directed. Thought content: Denies auditory and visual hallucinations. No delusions or paranoia are noted. No current suicidal ideation, and no homicidal ideation. Fund of knowledge is within normal limits. Insight and judgment appear to be fair. Impulse control is fair as well. Cognition: Patient Appearance: Appropriate Level of Consciousness: Awake, Alert and Follows Commands Patient Cognition Impaired: No Ability to Follow Directions: Fair Patient Orientation (long list): Person, Name and Birthday Comprehension Ability: No Impairment Hallucination Type: None Delusion Description: Not Present Thought Process: Appropriate Affect: Affect Description: Appropriate Depressive Symptoms: Back Pain, Changes in Appetite, Crying Spells, Difficulty Concentrating, Difficulty Sleeping, Difficulty Making Decisions, Feelings of Worthlessness, Hopelessness, Insomnia, Increased Anxiety, Increased Fatigue, Increased Irritability, Loss of Energy, Loss of Interest in Activities, Low Self Esteem, Muscle Pain, Muscle Tension, Significant Weight Loss, Recurrent Thoughts of or Suicide, Unexplained Stomach Pain and Unhappiness Behavior: Patient Behavior: Appropriate Speech Pattern: Appropriate Vitals/I&O/Wt Last Vital Signs Temp 98.1 F 02/21/21 06:00 Pulse 67 02/21/21 06:00 Resp 17 02/21/21 06:00 BP 92/58 02/21/21 06:00 Pulse Ox 99 02/21/21 06:00 Data NPU : 02/14/21 15:41 02/14/21 15:41 A&P Assessment and plan (1) Adverse effect of drug/medicinal: (1) Adverse effect of drug/medicinal: Status: Inactive Qualifiers: Encounter type: initial encounter Qualified Code(s): T50.905A - Adverse effect of unspecified drugs, medicaments and biological substances, initial encounter (2) Galactorrhea on both sides: Status: Inactive (3) Suicidal ideation: Status: Acute (4) Autism spectrum disorder: Status: Acute (5) Acute anxiety: Status: Acute Additional A&P Information This is a 25 year old female with a history of about 5 previous psychiatric admissions for depression, anxiety, and severe anger, including 2 previous admissions in December who presents with depression, anxiety and suicidal ideation and likely galactorrhea from her Risperdal. RECOMMENDATION AND PLAN: 1. Continue current medication including Trazodone 75 mg QHS, Cymbalta to 60 mg twice a day and BuSpar to 15 mg 3 times a day. Increase Geodon 60 mg twice a da y with foodcrease 2. Continue every 15 minute checks for safety. 3. Encourage individual, group and milieu therapies. 4. Encourage the patient follow-up with outpatient treatment, including DBT th erapy if possible. Status: Inactive Qualifiers: Encounter type: initial encounter Qualified Code(s): T50.905A - Adverse effect of unspecified drugs, medicaments and biological substances, initial encounter (2) Galactorrhea on both sides: Status: Inactive (3) Suicidal ideation: Status: Acute (4) Autism spectrum disorder: Status: Acute (5) Acute anxiety: Status: Acute Involuntary Hold Information 96 Hour Hold: 96 Hour Involuntary Admission: No Attestations NPU Medical Necessity Statement*: Inpatient hospitalization is medically necessary and the clinically appropriate intervention at this time. We will initiate medications and make changes as indicated. Coding Level of Care Code Acute Conference Planner for [facility] Diagnoses Adverse effect of drug/medicinal T50.905A Encounter type: initial encounter Galactorrhea on both sides N64.3 Suicidal ideation R45.851 Autism spectrum disorder F84.0 Acute anxiety F41.9
[2021-02-21 14:00] VITALS: BP 116/69; PULSE 82; RESP 18; TEMP 36.3; O2SAT 94
[2021-02-21] MEDS: quetiapine 25 mg Tablet 50 MG PO (20:42)
[2021-02-21] MEDS: trazodone 50 mg Tablet 75 MG PO (20:44)
[2021-02-21 21:44] VITALS: BP 101/69; PULSE 71; RESP 17; TEMP 36.7; O2SAT 97
[2021-02-22 06:00] VITALS: BP 102/81; PULSE 88; RESP 18; TEMP 37.1; O2SAT 100
[2021-02-22] MEDS: duloxetine 30 mg Capsule 60 MG PO ×2 (06:27→17:22)
[2021-02-22] MEDS: ziprasidone hcl 60 mg Capsule PO ×2 (06:27→17:22)
[2021-02-22] MEDS: BuSPIRONE 10 mg Tablet 15 MG PO ×3 (06:27→20:22)
[2021-02-22] MEDS: docusate sodium 100 mg Capsule PO ×2 (06:27→17:22)
--- NOTE | 2021-02-22 12:19 | P.NPUPN_ITS ---
Subjective NPU Subjective: Interval history: She said that she is a little depressed today. Her roommate left. She says her anxiety is there but not as bad as a couple of days ago. She has not cried today. She said that her roommate said that she slept very well last night and she was snoring. She did not feel that she slept very well last night. She says that she took the trazodone and the Seroquel as needed last night. She says that she slept until noon because she did not sleep as well at night. She agreed to try changing the as needed sleep medication to only Seroquel. Mental Status Exam MSE Comments: This is a overweight female of about the stated age who is in no acute distress. She is fairly groomed in hospital scrubs. She has not been tearful today.. psychomotor activity mildly increased. Speech is at a regular rate and rhythm, normal volume, good articulation, not pressured. Alert, oriented X3 Attention and concentration seem to be intact. Memory is intact Mood is depressed. Affect is mildly dysphoric she was not crying. Thought process is logical and goal-directed. Thought content: Denies auditory and visual hallucinations. No delusions or paranoia are noted. No current suicidal ideation, and no homicidal ideation. Fund of knowledge is within normal limits. Insight and judgment appear to be fair. Impulse control is fair as well. Cognition: Patient Appearance: Appropriate Level of Consciousness: Awake, Alert and Follows Commands Patient Cognition Impaired: No Ability to Follow Directions: Fair Patient Orientation (long list): Person, Name and Birthday Comprehension Ability: No Impairment Hallucination Type: None Delusion Description: Not Present Thought Process: Appropriate Affect: Affect Description: Appropriate Depressive Symptoms: Back Pain, Changes in Appetite, Crying Spells, Difficulty Concentrating, Difficulty Sleeping, Difficulty Making Decisions, Feelings of Worthlessness, Hopelessness, Insomnia, Increased Anxiety, Increased Fatigue, Increased Irritability, Loss of Energy, Loss of Interest in Activities, Low Self Esteem, Muscle Pain, Muscle Tension, Significant Weight Loss, Recurrent Thoughts of or Suicide, Unexplained Stomach Pain and Unhappiness Behavior: Patient Behavior: Appropriate Speech Pattern: Appropriate Vitals/I&O/Wt Last Vital Signs Temp 98.8 F 02/22/21 06:00 Pulse 88 02/22/21 06:00 Resp 18 02/22/21 06:00 BP 102/81 02/22/21 06:00 Pulse Ox 100 02/22/21 06:00 Data NPU : 02/14/21 15:41 02/14/21 15:41 A&P Assessment and plan (1) Adverse effect of drug/medicinal: (1) Adverse effect of drug/medicinal: Status: Inactive Qualifiers: Encounter type: initial encounter Qualified Code(s): T50.905A - Adverse effect of unspecified drugs, medicaments and biological substances, initial encounter (2) Galactorrhea on both sides: Status: Inactive (3) Suicidal ideation: Status: Acute (4) Autism spectrum disorder: Status: Acute (5) Acute anxiety: Status: Acute Additional A&P Information This is a 25 year old female with a history of about 5 previous psychiatric admissions for depression, anxiety, and severe anger, 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 RECOMMENDATION AND PLAN: 1. Continue current medication including Cymbalta to 60 mg twice a day and BuSpar to 15 mg 3 times a day. Geodon 60 mg twice a day with food. Dis continue trazodone and try Seroquel at bedtime for sleep. 2. Continue every 15 minute checks for safety. 3. Encourage individual, group and milieu therapies. 4. Encourage the patient follow-up with outpatient treatment, including DBT therapy if possible. Status: Inactive Qualifiers: Encounter type: initial encounter Qualified Code(s): T50.905A - Adverse effect of unspecified drugs, medicaments and biological substances, initial encounter (2) Galactorrhea on both sides: Status: Inactive (3) Suicidal ideation: Status: Acute (4) Autism spectrum disorder: Status: Acute (5) Acute anxiety: Status: Acute Involuntary Hold Information 96 Hour Hold: 96 Hour Involuntary Admission: No Attestations NPU Medical Necessity Statement*: Inpatient hospitalization is medically necessary and the clinically appropriate intervention at this time. We will initiate medications and make changes as indicated. Coding Level of Care Code Acute Clinical Project Leader for [facility] Diagnoses Adverse effect of drug/medicinal T50.905A Encounter type: initial encounter Galactorrhea on both sides N64.3 Suicidal ideation R45.851 Autism spectrum disorder F84.0 Acute anxiety F41.9
[2021-02-22] MEDS: hyDROXYzine 25 mg Capsule 50 MG PO (12:50)
--- NOTE | 2021-02-22 12:53 | PC.NURSE ---
Patient on phone with family and becoming anxious, and tearful. Medicated with Vistaril 50mg per prn orders.
[2021-02-22] MEDS: polyethylene glycol 3350 Pkt 17 gm PO (13:06)
--- NOTE | 2021-02-22 13:09 | NPU.GN ---
[facility] Topic:Group Topic: Pie of Emotions, Coping, and Supports General Mood of Group: Abril did not attend group. She was sleeping.
[2021-02-22 14:00] VITALS: BP 131/86; PULSE 104; RESP 20; TEMP 36.6; O2SAT 97
[2021-02-22] MEDS: quetiapine 300 mg Tablet 150 MG PO (20:21)
[2021-02-22 21:05] VITALS: BP 99/56; PULSE 65; RESP 15; O2SAT 99
[2021-02-23 06:00] VITALS: BP 131/85; PULSE 84; RESP 17; O2SAT 96
[2021-02-23] MEDS: duloxetine 30 mg Capsule 60 MG PO ×2 (06:31→16:28)
[2021-02-23] MEDS: BuSPIRONE 10 mg Tablet 15 MG PO ×3 (06:32→20:53)
[2021-02-23] MEDS: ziprasidone hcl 60 mg Capsule PO ×2 (06:32→16:28)
[2021-02-23] MEDS: docusate sodium 100 mg Capsule PO ×2 (06:32→16:28)
[2021-02-23] MEDS: polyethylene glycol 3350 Pkt 17 gm PO (08:36)
[2021-02-23] MEDS: ibuprofen 800 mg tablet PO (08:36)
[2021-02-23] MEDS: quetiapine 25 mg Tablet 50 MG PO (12:15)
[2021-02-23 14:00] VITALS: BP 131/85; PULSE 84; RESP 17; TEMP 36.6; O2SAT 96
--- NOTE | 2021-02-23 14:41 | W.PM.NPUPNS ---
Subjective NPU Subjective: Interval history: She said that she is doing really well today. She also had a good day yesterday. She wants to go home. She said that she cannot take a shower here because of the communal shower. She has never like taking showers where other people have been. She was actually tearful when I saw her this morning. She says that happens sometimes in the morning but then she turns around and does well. She said that her grandmother also feels like she is ready to come home. She is happy that she is doing so much better. She is worried about a relapse but does not want to stay longer and stabilize. She is still not sleeping very well but thinks that she will sleep much better when she is home in her own bed. She reluctantly agreed to stay until tomorrow morning. Mental Status Exam MSE Comments: This is a overweight female of about the stated age who is in no acute distress. She is fairly groomed in hospital scrubs. psychomotor activity mildly increased. Speech is at a regular rate and rhythm, normal volume, good articulation, not pressured. Alert, oriented X3 Attention and concentration seem to be intact. Memory is intact Mood is good. Affect is euthymic. Thought process is logical and goal-directed. Thought content: Denies auditory and visual hallucinations. No delusions or paranoia are noted. No current suicidal ideation, and no homicidal ideation. Fund of knowledge is within normal limits. Insight and judgment appear to be fair. Impulse control is fair as well. Cognition: Patient Appearance: Appropriate Level of Consciousness: Awake, Alert and Follows Commands Patient Cognition Impaired: No Ability to Follow Directions: Fair Patient Orientation (long list): Person, Name and Birthday Comprehension Ability: No Impairment Hallucination Type: None Delusion Description: Not Present Thought Process: Appropriate Affect: Affect Description: Anxious Depressive Symptoms: Back Pain, Changes in Appetite, Crying Spells, Difficulty Concentrating, Difficulty Sleeping, Difficulty Making Decisions, Feelings of Worthlessness, Hopelessness, Insomnia, Increased Anxiety, Increased Fatigue, Increased Irritability, Loss of Energy, Loss of Interest in Activities, Low Self Esteem, Muscle Pain, Muscle Tension, Significant Weight Loss, Recurrent Thoughts of or Suicide, Unexplained Stomach Pain and Unhappiness Behavior: Patient Behavior: Cooperative Speech Pattern: Appropriate and Clear Vitals/I&O/Wt Last Vital Signs Temp 97.8 F 02/23/21 14:00 Pulse 84 02/23/21 14:00 Resp 17 02/23/21 14:00 BP 131/85 02/23/21 14:00 Pulse Ox 96 02/23/21 14:00 Data NPU : 02/14/21 15:41 02/14/21 15:41 A&P Assessment and plan (1) Adverse effect of drug/medicinal: (1) Adverse effect of drug/medicinal: Status: Inactive Qualifiers: Encounter type: initial encounter Qualified Code(s): T50.905A - Adverse effect of unspecified drugs, medicaments and biological substances, initial encounter (2) Galactorrhea on both sides: Status: Inactive (3) Suicidal ideation: Status: Acute (4) Autism spectrum disorder: Status: Acute (5) Acute anxiety: Status: Acute Additional A&P Information This is a 25 year old female with a history of about 5 previous psychiatric admissions for depression, anxiety, and severe anger, including 2 previous admissions in December who presents with depression, anxiety and suicidal ideation and likely galactorrhea from her Risperdal. RECOMMENDATION AND PLAN: 1. Continue current medication including Cymbalta to 60 mg twice a day and BuSpar to 15 mg 3 times a day. Geodon 60 mg twice a day with food. Continue Seroquel 100 mg at bedtime for sleep 2. Continue every 15 minute checks for safety. 3. Encourage individual, group and milieu therapies. 4. Encourage the patient follow-up with outpatient treatment, including DBT therapy if possible. Status: Inactive Qualifiers: Encounter type: initial encounter Qualified Code(s): T50.905A - Adverse effect of unspecified drugs, medicaments and biological substances, initial encounter (2) Galactorrhea on both sides: Status: Inactive (3) Suicidal ideation: Status: Acute (4) Autism spectrum disorder: Status: Acute (5) Acute anxiety: Status: Acute Involuntary Hold Information 96 Hour Hold: 96 Hour Involuntary Admission: No Attestations NPU Medical Necessity Statement*: Inpatient hospitalization is medically necessary and the clinically appropriate intervention at this time. We will initiate medications and make changes as indicated. Coding Level of Care Code Acute Veterinary Virologist for [facility] Diagnoses Adverse effect of drug/medicinal T50.905A Encounter type: initial encounter Galactorrhea on both sides N64.3 Suicidal ideation R45.851 Autism spectrum disorder F84.0 Acute anxiety F41.9
[2021-02-23 14:55] VITALS: BP 126/77; PULSE 83; RESP 18; TEMP 36.6; O2SAT 98
[2021-02-23] MEDS: acetaminophen 325 mg Tablet 650 MG PO (16:30)
[2021-02-23 20:18] VITALS: BP 95/54; PULSE 70; RESP 17; TEMP 36.9; O2SAT 99
[2021-02-23] MEDS: quetiapine 300 mg Tablet 150 MG PO (20:53)
[2021-02-24] MEDS: hyDROXYzine 25 mg Capsule 50 MG PO ×2 (02:39→14:05)
[2021-02-24 06:00] VITALS: BP 131/80; PULSE 76; RESP 16; TEMP 36.9; O2SAT 100
[2021-02-24] MEDS: docusate sodium 100 mg Capsule PO (06:05)
[2021-02-24] MEDS: duloxetine 30 mg Capsule 60 MG PO (06:05)
[2021-02-24] MEDS: ziprasidone hcl 60 mg Capsule PO (06:06)
[2021-02-24] MEDS: BuSPIRONE 10 mg Tablet 15 MG PO (06:06)
--- NOTE | 2021-02-24 11:58 | P.NPUDS_ITS ---
Diagnoses at Discharge Discharge Diagnosis (1) Adverse effect of drug/medicinal: Status: Inactive Qualifiers: Encounter type: initial encounter Qualified Code(s): T50.905A - Adverse effect of unspecified drugs, medicaments and biological substances, initial encounter (2) Galactorrhea on both sides: Status: Inactive (3) Suicidal ideation: Status: Acute (4) Autism spectrum disorder: Status: Acute (5) Acute anxiety: Status: Acute Reason for Visit Reason for Visit: SI Brief History: History of Present Illness Abril Jaime is a 26 year old female who presented to the emergency department with the following report: Chief Complaint: Psychiatric Symptoms Stated Complaint: SI Time Seen by Provider: 02/14/21 14:57 History of Present Illness: MD complaint: suicidal ideation and other (anxiety) Onset (ago): day(s) Duration: constant History of same: Yes Relieving factors: medication Exacerbating factors: other (social stressors) Associated symptoms: Reports depression; Deny auditory hallucinations, visual hallucinations, delusions, homicidal ideation, suicidal ideation or racing thoughts Treatments prior to arrival: none If self harm: admits thoughts of self harm and has plan. She was admitted to the neuropsychiatric unit for definitive treatment of those issues. Patient presents today reporting that she is struggling with anxiety and suicidal ideation. This is her third hospitalization since 01/15/2021. And she identifies that some of it could be the way she is thinking about her situation and her expectations. Ultimately she reports that the medication has not fully been effective and her hope is that she can consider adjustments and then stay in the hospital until the medication is fully functional. We discussed the fact that is not a pathway that is available in inpatient hospitalization and that the best we would be able to do is look at outpatient resources to support her in the interim. She reported things been going downhill recently with stress that she has from where she lives. She reports that the people there do not want to do their fair share and that makes her frustrated she gets angry at them and then she starts to feel like she was to hurt her self. The other main insignificant complaint she has is that she endorses galactorrhea. We discussed that it was most likely from the Risperdal. We discussed the risks benefits and alternatives of considering either Zyprexa, Abilify, Invega or Geodon, after we determine which ones she has had in the past and she understood and agreed proceed as is documented in this note. We discussed the plan to check a prolactin level and then discontinue the Risperdal and determine which alternatives to go with. Otherwise she denies any substantive changes and an excerpt of her discharge summary from 01/27/2021 is included below for context. Per her 01/27/2021 [facility] inpatient psychiatric discharge summary: Discharge Diagnosis (1) Autism spectrum disorder: Status: Acute (2) Depression: Status: Acute (3) Acute anxiety: Status: Acute Reason for Visit Reason for Visit: SI Brief History: Abril Jaime is a 25 year old female with a history of about 5 previous psychiatric admissions for depression, anxiety, and severe anger, including an admission here from 01/15?01/17/2021 after taking too many of her duloxetine tablets. She admitted for depression, anxiety and suicidal ideation. I met with the patient briefly via telemedicine in the ED last night, and then today on the unit in person. The patient reports an 8-year history of depression and anxiety which began with the of her maternal grandfather, who, along with her grandmother, was raising her. She says that her anxiety becomes unbearable at times, and this causes her to be both depressed and angry. She also gets suicidal and thinks of various ways of killing herself. She gets very stirred up when I talk to her, and was unable to answer a number of questions. She denies auditory and visual hallucinations. She denies significant alcohol, drug and tobacco use. Recent stressors include moving from [place], [place] to [place], [place] in March 2020, to be close to a friend of the patient's stepfather, who lives in [place], [place]. she has been working at [employer] for the past month, and had a panic attack at work which led to her admission last week. The patient reports having taken the following medications in the past. She says all the ones on this list worked for a while, then stopped working. Prozac, Lexapro, Celexa, Effexor, Wellbutrin, and recently Cymbalta, and BuSpar. Also in this category are Abilify, Seroquel, Vyvanse, and hydroxyzine. The patient does not know if she has taken Zoloft, Remeron, Geodon, Zyprexa, Kapvay, Concerta, and Adderall. She is pretty sure that she has not taken Paxil, Pristiq, Risperdal, Invega, Fanapt, Saphris, and Intuniv. The initial psychiatric note from 01/15/2021 is included here for additional context, since much of the information is the same. Please note, these notes state that the patient took 460 mg of Prozac, but it turns out that she actually took #4 duloxetine 60 mg tabs, not 460 m-year-old female states she has been having anxiety and severe anger and depression throughout the day. She states she felt like her heart racing she been short of breath. She states that these feelings have been giving her suicidal thoughts. She had took extra Prozac today states she took 460 mg pills throughout the day due to her increasing anxiety and depression. She denies any specific plans to kill her self. Denies any cough or fever. Associated symptoms: Reports depression. She was admitted to the neuropsychiatric unit for definitive treatment of those issues. She reports that she has been hospitalized about four times. She denies outpatient services. She reports the medication she has been on is Cymbalta. She reports she has just had a bad week. She denies any history of suicide attempts, but has had suicidal thoughts. She reports that she does not smoke cigarettes, has alcohol occasionally, and denies marijuana or any other illicit drug use. She has never been to drug rehabilitation or had a DUI. She reports that she has been overwhelmed recently; she had been out of work and she has been really anxious. She reports that she ran out of her medication, as she had not been able to get any due to insurance difficulties etc. She reports that when she took one of her mother?s pills, so she didn?t run out, it was a higher dose and she is not sure if that was better, having 60 milligrams versus 30 milligrams. She reports that she has had BuSpar before, but she is not sure what dose, and it was from a non-psychiatrist. She reports that she would like to get connected with services; she wishes she had insurance. She reports her anxiety is really problematic. We discussed the risks, benefits, and alternatives of starting BuSpar, and she understood and agreed to proceed as is documented in this note. She also was very worried about work and wanted to make sure this was not that long of a stay. She had no real explanation for her reported overdose, but we discussed the long half-life of Prozac, and that we should be cautious about SSRI?s in the short term due to that. Hospital Course Hospital Course She slowly acclimated to the individual, group and milieu therapies provided. Cymbalta was increased to 60 twice a day and Geodon was added at 60 mg twice per day. Risperdal was discontinued. She was given Seroquel 150 mg to help with sleep at bedtime. She tolerated these doses and showed steady improvement during her stay. She was able to contract for safety outside hospital prior to discharge. During the hospitalization, patient had routine laboratory studies which were within normal limits except for few outliers. Additionally there was a general medical evaluation which was also within normal limits and revealed no new acute processes. Discharge Summary: At the time of discharge, lethality was denied and psychosis was resolving. Mood and anxiety were well managed. Patient endorsed a plan to follow-up with the aftercare recommendations of the treatment team. Patient was evaluated and deemed to be absent credible lethality, and had achieved the maximum benefit from an inpatient hospitalization, so was discharged. Involuntary Hold Information 96 Hour Hold: 96 Hour Involuntary Admission: No Mental Status Exam MSE Comments: This is a overweight female of about the stated age who is in no acute distress. She is fairly groomed in hospital scrubs. psychomotor activity mildly increased. Speech is at a regular rate and rhythm, normal volume, good articulation, not pressured. Alert, oriented X3 Attention and concentration seem to be intact. Memory is intact Mood is good. Affect is euthymic. Thought process is logical and goal-directed. Thought content: Denies auditory and visual hallucinations. No delusions or paranoia are noted. No current suicidal ideation, and no homicidal ideation. Fund of knowledge is within normal limits. Insight and judgment appear to be fair. Impulse control is fair as well. Discharge Data Vitals: Last Vital Signs Temp 98.4 F 02/24/21 06:00 Pulse 76 02/24/21 06:00 Resp 16 02/24/21 06:00 BP 131/80 02/24/21 06:00 Pulse Ox 100 02/24/21 06:00 Discharge Plan Discharge Patient Disposition: Home Condition: Stable Prescriptions: New buspirone 10 mg Tablet 15 mg PO 0700,1700,2100 30 Days Qty: 135 RF: 1 duloxetine 30 mg Capsule,Delayed Release(Dr/Ec) 60 mg PO 0700,1700 30 Days Qty: 120 RF: 1 quetiapine 50 mg tablet 150 mg PO BEDTIME 30 Days Qty: 90 RF: 0 ziprasidone HCl 60 mg Capsule 60 mg PO 0700,1700 30 Days Qty: 60 RF: 0 Continued ibuprofen 800 mg tablet 800 mg PO BID PRN (Reason: Pain (Scale Score 4-6)) RF: 0 bacitracin 500 unit/gram ointment 1 applic topical TID PRN (Reason: Rash) 30 Days Qty: 28.4 RF: 0 hydroxyzine pamoate 25 mg Capsule 50 mg PO Q6H PRN (Reason: Anxiety) 30 Days Qty: 120 RF: 1 Discontinued duloxetine 30 mg Capsule,Delayed Release(Dr/Ec) 30 mg PO BID 30 Days Qty: 60 RF: 0 risperidone 1 mg Tablet 1.5 mg PO 0900,2100 30 Days Qty: 90 RF: 0 trazodone 50 mg Tablet 75 mg PO BEDTIME 30 Days Qty: 30 RF: 0 buspirone 10 mg Tablet 15 mg PO 0900,2100 30 Days Qty: 90 RF: 1 Discharge Orders: Discharge Order (Routine); Ordered 02/24/21 Ordered By: Maikel Francisco Referrals: [facility] [Outside] - 1-3 days (Call to reschedule initial assessment appointment or you can walk in on Tuesdays or from 7:30am to 3:00pm to complete the assessment. ) Discharge Diet: Regular Discharge Activity: Resume usual activity Patient Instructions: Opioid Safety Discharge Attestations NPU Time Spent in Discharge Care*: less than 30 min Specific Discharge Activities: Specific discharge activities: educating patient, discussing with complex case manager/social workers/dc planners, documenting/other paperwork and evaluating patient/reviewing data Status at Discharge: Cognitive status at discharge: cognitively intact , Behavioral status at discharge: cooperative , Coding Level of Care Code Acute Chg FW DC note Diagnoses Adverse effect of drug/medicinal T50.905A Encounter type: initial encounter Galactorrhea on both sides N64.3 Suicidal ideation R45.851 Autism spectrum disorder F84.0 Acute anxiety F41.9
[2021-02-24 14:00] VITALS: BP 151/50; PULSE 89; RESP 16; TEMP 36.8; O2SAT 100
[2021-02-24 15:36] VITALS: BP 151/50; PULSE 89; RESP 16; TEMP 36.8; O2SAT 100
[2021-02-24 16:10] VITALS: BP 151/50; PULSE 89; RESP 16; TEMP 36.8; O2SAT 100
== END 2021-02-24 14:50 | disposition home or self-care (01) | DRG 880 ==
LOC: ER 15:05 → NP 15:28
PROVIDERS: Physician Assistant; Admitting Provider Psychiatry & Neurology Psychiatry; Emergency Provider Family Medicine; Visit Provider Psychiatry & Neurology Psychiatry
DX: F41.9 Anxiety disorder, unspecified (principal); R45.851 Suicidal ideations; F32.A Depression, unspecified; F84.0 Autistic disorder; N64.3 Galactorrhea not associated with childbirth; T43.595A Adverse effect of other antipsychotics and neuroleptics, initial encounter
CPT/HCPCS: 80053; 80307; 81001; 84146; 84703; 85025; 96372; 97150; 97165; 99285; J1200; J1630; J2060

== ENCOUNTER 2021-07-10 02:01 | Emergency (ER) | payer MEDICAID, SELFPAY ==
[2021-07-10 02:02] VITALS: BP 149/89; PULSE 93; RESP 18; TEMP 36.5; O2SAT 96; BMI 40.3
--- NOTE | 2021-07-10 02:12 | XRR_ITS ---
PROCEDURE INFORMATION: Exam: XR Chest Exam date and time: 07/10/2021 2:27 AM Age: 26 years old Clinical indication: Sternal or substernal pain; Additional info: Cp TECHNIQUE: Imaging protocol: XR of the chest. Views: 1 view. COMPARISON: No relevant prior studies available. FINDINGS: Lungs: Bra in place, likely accounting for slight haziness over the lateral left lung base. Lungs otherwise unremarkable. Pleural spaces: No pneumothorax or apparent pleural fluid. Heart/Mediastinum: Unremarkable. No cardiomegaly. Bones/joints: No suggestion of acute bony disease. XR/XR chest 1V portable [id number] IMPRESSION: No acute findings.
--- NOTE | 2021-07-10 02:13 | ED_ITS ---
HPI - Abdominal Pain General: Chief Complaint: Abdominal Pain Stated Complaint: ABD PAIN Time Seen by Provider: 07/10/21 02:01 Source: patient Mode of arrival: ambulatory Limitations: no limitations History of Present Illness: 26-year-old female states she had a left side and left chest pain over the last 3 to 4 hours states pains been sharp in nature rates it a 3 out of 10 she states she had a decreased appetite denies any vomiting denies any diarrhea denies any chest pain or shortness of breath cu rrently. No history of abdominal surgeries in the past. Denies any vaginal discharge. Associated Symptoms: Denies chills, dysuria and fever(s) Related Data: Date of Last Menstrual Period: 01/30/21 Review of Systems Const: Denies: fever(s), chills, body aches or change in appetite Eyes: Denies: blurry vision or eye discomfort ENMT: Denies: throat pain or dental pain Card: Denies: chest pain Resp: Denies: dyspnea GI: Reports: abdominal pain : Denies: dysuria Musc: Denies: neck pain or back pain Skin/Breast: Denies: rash Neuro: Denies: headache(s) Psych: Denies: depression [place]/Lymph: Denies: easy bruising All/Imm: Denies: urticaria PFSH ED PFSH: Medical History Psychiatric care Social History Smoking and tobacco status: never smoked Second hand smoke exposure: Yes Female Reproductive History: Date of last menstrual period: 01/30/21 Physical Exam Const: COMMON NORMALS: no acute distress, patient oriented x3 and healthy appearing HENMT: COMMON NORMALS: normocephalic and atraumatic HEAD & SCALP: normocephalic and atraumatic Eye: COMMON NORMALS: Equal, round and reactive pupils present and EOMs intact bilaterally PUPIL: Yes Equal, round and reactive pupils present Neck/C-Spine: COMMON NORMALS: full ROM and supple Chest: COMMONS NORMALS: normal inspection of the chest OTHER: Point tender to the left lower chest wall Resp: COMMON NORMALS: normal respiratory effort, No retractions, No use of accessory muscles and clear to auscultation bilaterally AUSCULTATION: clear to auscultation bilaterally Cardio: COMMON NORMALS: regular rate, regular rhythm and No murmurs present (Cardio) RATE: regular rate RHYTHM: regular rhythm GI: COMMON NORMALS: Normal to inspection, nondistended, normoactive bowel sounds present, Soft to palpation, non-tender and no masses PALPATION: Yes Soft to palpation Extremity: COMMON NORMALS: normal to inspection and full ROM Neuro: COMMON NORMALS: patient oriented x3, moves all extremities and no focal motor deficits Psych: COMMON NORMALS: mental status grossly normal, Normal thought process present and cooperative THOUGHT PROCESS: Normal thought process present Skin: COMMON NORMALS: no rashes or lesions noted and no wounds GENERAL SKIN EXAM: no rashes or lesions noted Course Vital Signs: Vital signs: Vital Signs Temperature 97.7 F 07/10/21 02:02 Pulse Rate 93 07/10/21 02:02 Respiratory Rate 18 07/10/21 02:02 Blood Pressure 149/89 07/10/21 02:02 Pulse Oximetry 96 07/10/21 02:02 MDM - Abdominal Pain Medical Decision Making Patient presents here with abdominal pain on exam its more tenderness over left upper back and left chest wall no abdominal tenderness on exam she has no signs of acute surgical abdomen her pains improved here we will place her on Naprosyn Robaxin she is to follow-up with PCP in 2 to 4 days return if worsening she understands agrees to plan. Lab Data : 07/10/21 02:09 07/10/21 02:09 Labs/Radiology: Laboratory Results WBC 14.2 10^3/uL (4.0-10.0) H 07/10/21 02:09 RBC 4.48 10^6/uL (4.1-5.3) 07/10/21 02:09 Hgb 13.3 g/dL (11.5-15.3) 07/10/21 02:09 Hct 39.7 % (37.0-47.0) 07/10/21 02:09 MCV 88.6 fl (81-99) 07/10/21 02:09 MCH 29.7 pg (28.0-34.0) 07/10/21 02:09 MCHC 33.5 g/dL (30.0-36.0) 07/10/21 02:09 RDW 12.6 % (12.1-15.1) 07/10/21 02:09 Plt Count 328 10^3/cmm (130-400) 07/10/21 02:09 MPV 9.6 fL (7.4-10.4) 07/10/21 02:09 Neut % (Auto) 54.0 % 07/10/21 02:09 Lymph % (Auto) 35.6 % 07/10/21 02:09 [place] % (Auto) 7.2 % 07/10/21 02:09 Eos % (Auto) 1.5 % 07/10/21 02:09 Baso % (Auto) 1.0 % 07/10/21 02:09 Neut # (Auto) 7.69 10^3/uL (1.8-7.7) 07/10/21 02:09 Lymph # (Auto) 5.1 10^3/uL (0.8-4.8) H 07/10/21 02:09 [place] # (Auto) 1.0 10^3/uL (0.2-0.9) H 07/10/21 02:09 Eos # (Auto) 0.2 10^3/uL (0.0-0.8) 07/10/21 02:09 Baso # (Auto) 0.1 10^3/uL (0.0-0.1) 07/10/21 02:09 Nucleated RBC % (auto) 0 % 07/10/21 02:09 Nucleated RBCs # 0.0 /100WBC 07/10/21 02:09 Sodium 135 mmol/L (136-145) L 07/10/21 02:09 Potassium 4.0 mmol/L (3.5-5.1) 07/10/21 02:09 Chloride 102 mmol/L (98-107) 07/10/21 02:09 Carbon Dioxide 20 mmol/L (22-29) L 07/10/21 02:09 Anion Gap 17.0 (5-19) 07/10/21 02:09 BUN 7 mg/dL (6-20) 07/10/21 02:09 Creatinine 0.6 mg/dL (0.5-0.9) 07/10/21 02:09 GFR Calculation 122.8 mL/min (90-130) 07/10/21 02:09 Glucose 95 mg/dL (65-115) 07/10/21 02:09 Calculated Osmolality 278 mOsm/kg (285-295) L 07/10/21 02:09 Calcium 9.8 mg/dL (8.5-10.5) 07/10/21 02:09 Total Bilirubin 0.3 mg/dL (0.15-1.2) 07/10/21 02:09 AST 19 U/L (0-32) 07/10/21 02:09 ALT 22 U/L (0-33) 07/10/21 02:09 Alkaline Phosphatase 97 IU/L (35-105) 07/10/21 02:09 Total Protein 7.3 g/dL (6.6-8.7) 07/10/21 02:09 Albumin 4.4 g/dL (3.5-5.2) 07/10/21 02:09 Globulin 2.9 g/dL (1.3-4.6) 07/10/21 02:09 Lipase 19 U/L (13-60) 07/10/21 02:09 HCG, Qual Negative (Negative) 07/10/21 02:09 Urine Color Yellow (Yellow) 07/10/21 02:28 Urine Appearance Clear (CLEAR) 07/10/21 02:28 Urine pH 6 (5-7) 07/10/21 02:28 Ur Specific [place] 1.015 (1.005-1.030) 07/10/21 02:28 Urine Protein Neg (Negative) 07/10/21 02:28 Urine Glucose (UA) Norm (Normal) 07/10/21 02:28 Urine Ketones Negative (Negative) 07/10/21 02:28 Urine Blood Neg (Negative) 07/10/21 02:28 Urine Nitrate Negative (Negative) 07/10/21 02:28 Urine Bilirubin Neg (Negative) 07/10/21 02:28 Urine Urobilinogen Norm mg/dL (Negative) 07/10/21 02:28 Ur Leukocyte Esterase Negative (Negative) 07/10/21 02:28 Discharge Plan Discharge Patient Disposition: Home Clinical Impression: Abdominal pain Qualifiers: Abdominal location: left upper quadrant Qualified Code(s): R10.12 - Left upper quadrant pain Condition: Stable Prescriptions: New methocarbamol 750 mg tablet 750 mg PO Q6H PRN (Reason: spasms) Qty: 20 0RF Naprosyn 500 mg tablet 500 mg PO BID PRN (Reason: pain) Qty: 20 0RF No Action duloxetine 60 mg capsule,delayed release(DR/EC) 60 mg PO BID Qty: 60 2RF Rx Instructions: Take one capsule by mouth every morning and daily at 2 PM trazodone 100 mg tablet 100 mg PO DAILY PRN (Reason: insomnia) Qty: 30 2RF Rx Instructions: Take 1/2 or 1 tablet at bedtime, if needed for insomnia ziprasidone HCl [Geodon] 60 mg capsule 60 mg PO BID Qty: 60 2RF Rx Instructions: Take one capsule morning and evening with meal/snack buspirone 15 mg tablet 15 mg PO BID Qty: 60 2RF Rx Instructions: Take one tablet by mouth every morning and evening hydroxyzine pamoate 25 mg capsule 50 mg PO BID PRN (Reason: Anxiety) Qty: 60 2RF Rx Instructions: Take one or 2 capsules up to twice a day, if needed for anxiety CBD gum PO 0RF Label Comments: Patient reported 04/03/2021 Discharge Orders: Discharge ED (Routine); Ordered 07/10/21 Ordered By: Will Arrington Referrals: Alejandro Franklin MD [Primary Care Provider] - 1-3 days Discharge Diet: Advance as tolerated Discharge Activity: Resume usual activity Patient Instructions: Abdominal Pain (ED) Coding Level of Care Code 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
[2021-07-10 02:19] LABS: Basophils # 0.1 10^3/uL (0.0-0.1); Eosinophils # 0.2 10^3/uL (0.0-0.8); Eosinophils % 1.5 %; Hematocrit 39.7 % (37.0-47.0); Hemoglobin 13.3 g/dL (11.5-15.3); Lymphocytes # 5.1 10^3/uL (0.8-4.8); Lymphocytes % 35.6 %; Mean Corpuscular HGB Conc 33.5 g/dL (30.0-36.0); Mean Corpuscular Hemoglobin 29.7 pg (28.0-34.0); Mean Corpuscular Volume 88.6 fl (81-99); Mean Platelet Volume 9.6 fL (7.4-10.4); Monocytes % 7.2 %; Neutrophils # 7.69 10^3/uL (1.8-7.7); Nucleated Red Blood Cells % 0 %; Platelet Count 328 10^3/cmm (130-400); Red Blood Count 4.48 10^6/uL (4.1-5.3); Red Cell Distribution Width 12.6 % (12.1-15.1); White Blood Count 14.2 10^3/uL (4.0-10.0)
[2021-07-10] MEDS: morphine 4 mg/mL SDV 1 mL IVP (02:31)
[2021-07-10] MEDS: ondansetron 2 mg/ML SDV 2 mL 4 MG IVP (02:31)
[2021-07-10] MEDS: sodium chloride 0.9% 1,000 ML 999 ML IV (02:31)
[2021-07-10 02:34] LABS: Add Urine Microscopic? NO; Charge for UA Resulting for Rev
[2021-07-10 02:35] LABS: HCG, Serum Qual Negative (Negative)
[2021-07-10 02:39] LABS: Bilirubin Urine Neg (Negative); Blood Urine Neg (Negative); Glucose Urine UA Norm (Normal); Ketones Urine Negative (Negative); Leukocyte Esterase Urine Negative (Negative); Nitrate Urine Negative (Negative); Protein Urine Neg (Negative); Specific Gravity, Urine 1.015 (1.005-1.030); Urine Appearance Clear (CLEAR); Urine Color Yellow (Yellow); Urobilinogen Urine Norm (Negative); pH Urine 6 (5-7)
[2021-07-10 02:42] LABS: Alanine Aminotransferase 22 U/L (0-33); Albumin Level 4.4 g/dL (3.5-5.2); Alkaline Phosphatase 97 IU/L (35-105); Aspartate Amino Transferase 19 U/L (0-32); Blood Urea Nitrogen 7 mg/dL (6-20); Calcium 9.8 mg/dL (8.5-10.5); Carbon Dioxide 20 mmol/L (22-29); Chloride 102 mmol/L (98-107); Globulin 2.9 g/dL (1.3-4.6); Glomerular Filtration Rate 122.8 mL/min (90-130); Glucose 95 mg/dL (65-115); Lipase 19 U/L (13-60); Osmolality Calculated 278 mOsm/kg (285-295); Sodium 135 mmol/L (136-145); Total Bilirubin 0.3 mg/dL (0.15-1.2); Total Protein 7.3 g/dL (6.6-8.7)
== END 2021-07-10 03:37 | disposition home or self-care (01) ==
PROVIDERS: Emergency Provider Emergency Medicine; PCP Family Medicine
DX: R10.12 Left upper quadrant pain (principal); M54.6 Pain in thoracic spine; R07.89 Other chest pain
CPT/HCPCS: 71045; 80053; 81003; 83690; 84703; 85025; 96361; 96374; 96375; 99283; J2270; J2405; J7030

== ENCOUNTER 2021-08-02 23:03 | Emergency (ER) | payer MEDICAID, SELFPAY ==
[2021-08-02 23:04] VITALS: BMI 40.3
--- NOTE | 2021-08-02 23:18 | W.ED.PSYCHS ---
HPI - Psych General: Chief Complaint: Psychiatric Symptoms Stated Complaint: HALLUCINATIONS Time Seen by Provider: 08/02/21 23:05 Source: patient Mode of arrival: ambulatory Limitations: no limitations History of Present Illness: 26-year-old female states she started having hallucinations tonight she states that she feels like she is draining there is an alternate universe and is any when sure if this is the real world. She has had previous psych admissions does have anxiety is on the autism spectrum. She denies any worsening improving factors denies any suicidality or homicidality. Associated symptoms: Deny depression Review of Systems Const: Denies: fever(s), chills, body aches or change in appetite Eyes: Denies: blurry vision or eye discomfort ENMT: Denies: throat pain or dental pain Card: Denies: chest pain Resp: Denies: dyspnea GI: Denies: abdominal pain, nausea, vomiting or diarrhea : Denies: dysuria Musc: Denies: neck pain or back pain Skin/Breast: Denies: rash Neuro: Denies: headache(s) Psych: Denies: depression [place]/Lymph: Denies: easy bruising All/Imm: Denies: urticaria PFS ED PFSH: Medical History Psychiatric care Social History Smoking and tobacco status: never smoked Second hand smoke exposure: Yes Female Reproductive History: Date of last menstrual period: 01/30/21 Physical Exam Const: COMMON NORMALS: no acute distress, patient oriented x3 and healthy appearing HENMT: COMMON NORMALS: normocephalic and atraumatic HEAD & SCALP: normocephalic and atraumatic Eye: COMMON NORMALS: Equal, round and reactive pupils present and EOMs intact bilaterally PUPIL: Yes Equal, round and reactive pupils present Neck/C-Spine: COMMON NORMALS: full ROM and supple Chest: COMMONS NORMALS: normal inspection of the chest and normal palpation of entire chest wall Resp: COMMON NORMALS: normal respiratory effort, No retractions, No use of accessory muscles and clear to auscultation bilaterally AUSCULTATION: clear to auscultation bilaterally Cardio: COMMON NORMALS: regular rate, regular rhythm and No murmurs present (Cardio) RATE: regular rate RHYTHM: regular rhythm GI: COMMON NORMALS: Normal to inspection, nondistended, normoactive bowel sounds present, Soft to palpation, non-tender and no masses PALPATION: Yes Soft to palpation Extremity: COMMON NORMALS: normal to inspection and full ROM Neuro: COMMON NORMALS: patient oriented x3, moves all extremities and no focal motor deficits Psych: COMMON NORMALS: mental status grossly normal, Normal thought process present and cooperative THOUGHT PROCESS: Normal thought process present THOUGHT CONTENT: Yes Hallucination(s) present Skin: COMMON NORMALS: no rashes or lesions noted and no wounds GENERAL SKIN EXAM: no rashes or lesions noted Course Vital Signs: Vital signs: Vital Signs Pulse Rate 92 08/03/21 00:18 Respiratory Rate 18 08/03/21 00:18 Blood Pressure 164/88 08/03/21 00:18 Pulse Oximetry 98 08/03/21 00:18 MDM - Psych Medical Decision Making Patient presents here with feeling she is an alternate reality. She has had concerns of possible seizure-like activity in the past along with sleep apnea patient was evaluated by psychiatrist and patient is not actively suicidal homicidal and he does not feel that she requires inpatient admission at this time he did state that she would like to stay that he would be willing to admit her I informed her of this and her family and told them of the like to be admitted that we would admit her here but they would like to follow-up that I feel like that was appropriate as well we they made a shared decision making that she would go home she states she does have some difficulty sleeping told her she could take Benadryl or melatonin we will get her follow-up with neurology as well along with behavioral health she is return if worsening. Discharge Plan Discharge Patient Disposition: Home Clinical Impression: Hallucination Condition: Stable Prescriptions: No Action duloxetine 60 mg capsule,delayed release(DR/EC) 60 mg PO BID Qty: 60 2RF Rx Instructions: Take one capsule by mouth every morning and daily at 2 PM trazodone 100 mg tablet 100 mg PO DAILY PRN (Reason: insomnia) Qty: 30 2RF Rx Instructions: Take 1/2 or 1 tablet at bedtime, if needed for insomnia ziprasidone HCl [Geodon] 60 mg capsule 60 mg PO BID Qty: 60 2RF Rx Instructions: Take one capsule morning and evening with meal/snack buspirone 15 mg tablet 15 mg PO BID Qty: 60 2RF Rx Instructions: Take one tablet by mouth every morning and evening hydroxyzine pamoate 25 mg capsule 50 mg PO BID PRN (Reason: Anxiety) Qty: 60 2RF Rx Instructions: Take one or 2 capsules up to twice a day, if needed for anxiety CBD gum PO 0RF Label Comments: Patient reported 04/03/2021 methocarbamol 750 mg tablet 750 mg PO Q6H PRN (Reason: spasms) Qty: 20 0RF Naprosyn 500 mg tablet 500 mg PO BID PRN (Reason: pain) Qty: 20 0RF Discharge Orders: Discharge ED (Routine); Ordered 08/03/21 Ordered By: Will Arrington Referrals: Alejandro Franklin MD [Primary Care Provider] - Discharge Diet: Advance as tolerated Discharge Activity: Resume usual activity Patient Instructions: Hallucinations (ED) Coding 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
[2021-08-02 23:57] VITALS: BP 129/96; PULSE 124; O2SAT 97
[2021-08-03] MEDS: LORazepam 1 mg Tablet 2 MG PO (00:12)
[2021-08-03] MEDS: diphenhydrAMINE 50 mg Capsule PO (00:12)
[2021-08-03 00:17] VITALS: BP 164/88; PULSE 92; RESP 18; O2SAT 98
[2021-08-03 00:18] VITALS: BP 164/88; PULSE 92; RESP 18; O2SAT 98
--- NOTE | 2021-08-03 22:38 | DCPLANNER ---
Addendum entered by Ritika Guajardo 08/21/21 08:01: Patient has a follow up appointment scheduled for Monday, September 27, 2021 at 10:[address] Herrera. Clinic will call patient with appointment information. Original Note: infrastructure project manager had message to schedule a follow up appointment for patient with neurology. infrastructure project manager sent patients information to the front office staff at neurology. Patients information will be printed and reviewed. Clinic will call patient with appointment information.
--- NOTE | 2021-08-21 13:57 | DCPLANNER ---
manager support services had message to speak with patient about services at [facility]. 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
== END 2021-08-03 00:19 | disposition home or self-care (01) ==
PROVIDERS: Emergency Provider Emergency Medicine; PCP Family Medicine
DX: R44.3 Hallucinations, unspecified (principal)
CPT/HCPCS: 99283; Q0163

== ENCOUNTER → 2021-08-03 13:25 | Outpatient (BNVA) | payer SELFPAY | PROVIDERS: PCP Family Medicine; Visit Provider Nurse Practitioner Psychiatric/Mental Health | DX: F41.1 Generalized anxiety disorder (principal); Z79.899 Other long term (current) drug therapy | CPT/HCPCS: 80061; 83036 ==

== ENCOUNTER 2021-10-10 16:16 | Outpatient (CLI) | payer MEDICAID, SELFPAY ==
[2021-08-21 16:24] VITALS: BP 128/90; BMI 41.4
--- NOTE | 2021-10-10 16:29 | XR_ITS ---
WS: [id number] LUMBAR SPINE: 3 VIEWS TECHNIQUE: AP, lateral and L5-S1 spot. HISTORY: Lumbar back pain COMPARISON: None available. Lumbar vertebra are normally aligned. No loss of disc space or vertebral body height. SI joints are symmetric bilaterally. No soft tissue abnormalities. XR/XR lumbar spine 2-3V* [id number] IMPRESSION: Normal lumbar spine.
== END 2021-10-10 16:17 | disposition home or self-care (01) ==
PROVIDERS: PCP Family Medicine; Visit Provider Family Medicine
DX: M54.50 Low back pain, unspecified (principal)
CPT/HCPCS: 72100

== ENCOUNTER → 2021-11-29 08:19 | Outpatient (BNVA) | payer MEDICAID, SELFPAY ==
[2021-08-21 16:24] VITALS: BP 128/90; BMI 41.4
== END ==
PROVIDERS: PCP Family Medicine; Visit Provider Specialist
DX: G43.019 Migraine without aura, intractable, without status migrainosus (principal); R68.89 Other general symptoms and signs; F84.0 Autistic disorder
CPT/HCPCS: 99213

== ENCOUNTER → 2021-12-14 11:15 | Outpatient (BNVA) | payer MEDICAID, SELFPAY ==
[2021-08-21 16:24] VITALS: BP 128/90; BMI 41.4
== END ==
PROVIDERS: PCP Family Medicine; Visit Provider Registered Nurse Neonatal Intensive Care
DX: R50.9 Fever, unspecified (principal); R11.10 Vomiting, unspecified; U07.1 COVID-19
CPT/HCPCS: 87400; 87426

== ENCOUNTER → 2022-03-19 16:20 | Outpatient (BNVA) | payer MEDICAID, SELFPAY ==
[2022-02-05 13:54] VITALS: BP 128/90; BMI 41.4
== END ==
PROVIDERS: PCP Family Medicine; Visit Provider Family Medicine
DX: G47.10 Hypersomnia, unspecified (principal); R79.89 Other specified abnormal findings of blood chemistry; R40.0 Somnolence
CPT/HCPCS: 80053; 82652; 84439; 84443; 85025; 85651; 86140

== ENCOUNTER → 2022-06-01 10:34 | Outpatient (BNVA) | payer MEDICAID, SELFPAY ==
[2022-02-05 13:54] VITALS: BP 128/90; BMI 41.4
== END ==
PROVIDERS: PCP Family Medicine; Visit Provider Nurse Practitioner Family
DX: R43.2 Parageusia (principal); J06.9 Acute upper respiratory infection, unspecified
CPT/HCPCS: 87426

== ENCOUNTER → 2022-11-22 11:25 | Outpatient (BNVA) | payer MEDICAID, SELFPAY ==
[2022-02-05 13:54] VITALS: BP 128/90; BMI 41.4
== END ==
PROVIDERS: PCP Family Medicine; Visit Provider Nurse Practitioner Psychiatric/Mental Health
DX: Z79.899 Other long term (current) drug therapy (principal)
CPT/HCPCS: 80053; 80061; 83036

== ENCOUNTER 2023-03-30 20:28 | Emergency (ER) | payer MEDICAID, SELFPAY ==
[2022-02-05 13:54] VITALS: BP 128/90; BMI 41.4
[2023-03-30 21:12] VITALS: BP 152/88; PULSE 98; RESP 18; TEMP 36.4; O2SAT 98
--- NOTE | 2023-03-30 21:24 | W.ED.NAVMDI ---
HPI - Nausea/Vomiting/Diarrhea General: Chief complaint: Nausea/Vomiting/Diarrhea Stated complaint: n/v, possible food poision Time Seen by Provider: 03/30/23 20:59 Source: patient Mode of arrival: ambulatory Limitations: no limitations History of Present Illness: 28-year-old female states that she has been having nausea vomiting diarrhea 2 days ago states that she has not had any today but has had some nausea. She denies abdominal pain she thinks she had food poisoning 2 days ago. Denies any worsening proving factors denies any fevers. Associated nausea: Yes Associated symtoms: Reports nausea; Denies chest pain or headache(s) Review of Systems Const: Denies: fever(s), chills, body aches or change in appetite ENMT: Denies: throat pain or dental pain Card: Denies: chest pain Resp: Denies: dyspnea GI: Reports: nausea, vomiting and diarrhea; Denies: abdominal pain Musc: Denies: neck pain or back pain Skin/Breast: Denies: rash Neuro: Denies: headache(s) PFSH ED PFSH: Medical History Impacted ear wax External otitis of left ear Psychiatric care Social History Smoking and tobacco/nicotine status: never used tobacco/nicotine Second hand smoke exposure: Yes Alcohol intake: current Alcohol intake frequency: holidays/special occasions only Alcohol type: beer and wine Substance/Drug Use: never Female Reproductive History: Spontaneous abortions: No Physical Exam Const: COMMON NORMALS: no acute distress, patient oriented x3 and healthy appearing HENMT: COMMON NORMALS: normocephalic and atraumatic HEAD & SCALP: normocephalic and atraumatic Eye: COMMON NORMALS: Equal, round and reactive pupils present and EOMs intact bilaterally PUPIL: Yes Equal, round and reactive pupils present Neck/C-Spine: COMMON NORMALS: full ROM and supple Chest: COMMONS NORMALS: normal inspection of the chest Resp: COMMON NORMALS: normal respiratory effort Cardio: COMMON NORMALS: regular rate, regular rhythm and No murmurs present (Cardio) RATE: regular rate RHYTHM: regular rhythm GI: COMMON NORMALS: Normal to inspection, nondistended, normoactive bowel sounds present, Soft to palpation, non-tender and no masses PALPATION: Yes Soft to palpation Extremity: COMMON NORMALS: normal to inspection and full ROM Neuro: COMMON NORMALS: patient oriented x3, moves all extremities and no focal motor deficits Psych: COMMON NORMALS: mental status grossly normal, Normal thought process present and cooperative THOUGHT PROCESS: Normal thought process present Skin: COMMON NORMALS: no rashes or lesions noted and no wounds GENERAL SKIN EXAM: no rashes or lesions noted Course Vital Signs: Vital signs: Vital Signs Temperature 97.6 F 03/30/23 21:12 Pulse Rate 98 03/30/23 21:12 Respiratory Rate 18 03/30/23 21:12 Blood Pressure 152/88 03/30/23 21:12 Pulse Oximetry 98 03/30/23 21:12 MDM - Nausea/Vomiting/Diarrhea Medical Decision Making Patient presents here with vomiting is since resolved she is well-appearing her exam is benign blood works normal we will prescribe her Zofran she is follow-up with PCP and return if worsening she understands agrees to plan. Medical Records I reviewed the patient's medical records. Lab Data I reviewed the patient's lab results. 03/30/23 21:39 03/30/23 21:39 Laboratory Results WBC 10.46 10^3/uL (3.29-11.43) 03/30/23 21:39 RBC 4.59 10^6/uL (3.85-5.65) 03/30/23 21:39 Hgb 13.10 g/dL (11.27-16.99) 03/30/23 21:39 Hct 40.1 % (36-47) 03/30/23 21:39 MCV 87.4 fl (85-98) 03/30/23 21:39 MCH 28.5 pg (27-33) 03/30/23 21:39 MCHC 32.7 g/dL (30-55) 03/30/23 21:39 RDW 12.6 % (12.1-15.1) 03/30/23 21:39 Plt Count 311 10^3/cmm (157-399) 03/30/23 21:39 MPV 9.3 fL (7.4-10.4) 03/30/23 21:39 Neut % (Auto) 55.5 % 03/30/23 21:39 Lymph % (Auto) 31.3 % 03/30/23 21:39 [place] % (Auto) 6.9 % 03/30/23 21:39 Eos % (Auto) 4.9 % 03/30/23 21:39 Baso % (Auto) 0.9 % 03/30/23 21:39 Neut # (Auto) 5.82 10^3/uL (1.8-7.7) 03/30/23 21:39 Lymph # (Auto) 3.3 10^3/uL (0.8-4.8) 03/30/23 21:39 [place] # (Auto) 0.7 10^3/uL (0.2-0.9) 03/30/23 21:39 Eos # (Auto) 0.5 10^3/uL (0.0-0.8) 03/30/23 21:39 Baso # (Auto) 0.1 10^3/uL (0.0-0.1) 03/30/23 21:39 Nucleated RBC % (auto) 0 % 03/30/23 21:39 Nucleated RBCs # 0.0 /100WBC 03/30/23 21:39 Sodium 139 mmol/L (136-145) 03/30/23 21:39 Potassium 3.5 mmol/L (3.5-5.1) 03/30/23 21:39 Chloride 106 mmol/L (98-107) 03/30/23 21:39 Carbon Dioxide 23 mmol/L (22-29) 03/30/23 21:39 Anion Gap 13.5 (5-19) 03/30/23 21:39 BUN 9 mg/dL (6-20) 03/30/23 21:39 Creatinine 0.7 mg/dL (0.5-0.9) 03/30/23 21:39 GFR Calculation 101.1 mL/min (90-130) 03/30/23 21:39 Glucose 83 mg/dL (65-115) 03/30/23 21:39 Calculated Osmolality 286 mOsm/kg (285-295) 03/30/23 21:39 Calcium 9.5 mg/dL (8.5-10.5) 03/30/23 21:39 Total Bilirubin 0.2 mg/dL (0.15-1.2) 03/30/23 21:39 AST 29 U/L (0-32) 03/30/23 21:39 ALT 48 U/L (0-33) H 03/30/23 21:39 Alkaline Phosphatase 111 U/L (35-105) H 03/30/23 21:39 Total Protein 7.0 g/dL (6.6-8.7) 03/30/23 21:39 Albumin 4.1 g/dL (3.5-5.2) 03/30/23 21:39 Globulin 2.9 g/dL (1.3-4.6) 03/30/23 21:39 Lipase 24 U/L (13-60) 03/30/23 21:39 HCG, Qual Negative (Negative) 03/30/23 21:39 No radiology studies performed this visit Discharge Plan Discharge Patient Disposition: Home Clinical Impression: Vomiting Condition: Stable Prescriptions: New ondansetron 4 mg tablet,disintegrating 4 mg PO Q6H PRN (Reason: nausea and vomiting) Qty: 14 0RF No Action buspirone 10 mg tablet 20 mg PO BID Qty: 120 2RF Rx Instructions: Take two tablets morning and evening duloxetine 60 mg capsule,delayed release(DR/EC) 60 mg PO BID Qty: 60 2RF Rx Instructions: Take one capsule every morning and evening hydroxyzine pamoate 50 mg capsule 50 mg PO BID PRN (Reason: anxiety) 30 Days Qty: 60 2RF Rx Instructions: Take 1 capsule twice daily (at least 4 to 6 hours apart), if needed for anxiety ziprasidone HCl 40 mg capsule 40 mg PO BID Qty: 60 2RF Rx Instructions: Take one capsule morning and evening- give with food/snack of at least 350 calories omeprazole 20 mg capsule,delayed release(DR/EC) See Rx Instructions .ROUTE .COMPLEX Qty: 90 3RF Dose Instruction: Take 1 capsule by mouth once daily Rx Instructions: Take 1 capsule by mouth once daily trazodone 100 mg tablet 100 mg PO DAILY PRN (Reason: insomnia) Qty: 7 0RF Rx Instructions: Take 1 tablet at bedtime, if needed for insomnia Discharge Orders: Discharge ED (Routine); Ordered 03/30/23 Ordered By: Will Arrington Referrals: Herve Guerra DO [Primary Care Provider] - 1-3 days Discharge Diet: Advance as tolerated Discharge Activity: Resume usual activity Patient Instructions: Acute Nausea and Vomiting (ED) Coding Level of Care Code 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
[2023-03-30] MEDS: sodium chloride 0.9% 1,000 ML 999 ML IV (21:43)
[2023-03-30] MEDS: ondansetron 2 mg/ML SDV 2 mL 4 MG IVP (21:43)
[2023-03-30 21:48] LABS: Basophils # 0.1 10^3/uL (0.0-0.1); Basophils % 0.9 %; Eosinophils # 0.5 10^3/uL (0.0-0.8); Eosinophils % 4.9 %; Hematocrit 40.1 % (36-47); Lymphocytes # 3.3 10^3/uL (0.8-4.8); Lymphocytes % 31.3 %; Mean Corpuscular HGB Conc 32.7 g/dL (30-55); Mean Corpuscular Hemoglobin 28.5 pg (27-33); Mean Corpuscular Volume 87.4 fl (85-98); Mean Platelet Volume 9.3 fL (7.4-10.4); Monocytes # 0.7 10^3/uL (0.2-0.9); Monocytes % 6.9 %; Neutrophils # 5.82 10^3/uL (1.8-7.7); Neutrophils % 55.5 %; Nucleated Red Blood Cells % 0 %; Platelet Count 311 10^3/cmm (157-399); Red Blood Count 4.59 10^6/uL (3.85-5.65); Red Cell Distribution Width 12.6 % (12.1-15.1); White Blood Count 10.46 10^3/uL (3.29-11.43)
[2023-03-30 21:57] LABS: HCG, Serum Qual Negative (Negative)
[2023-03-30 22:03] LABS: Alanine Aminotransferase 48 U/L (0-33); Albumin Level 4.1 g/dL (3.5-5.2); Alkaline Phosphatase 111 U/L (35-105); Anion Gap 13.5 (5-19); Aspartate Amino Transferase 29 U/L (0-32); Blood Urea Nitrogen 9 mg/dL (6-20); Calcium 9.5 mg/dL (8.5-10.5); Carbon Dioxide 23 mmol/L (22-29); Chloride 106 mmol/L (98-107); Globulin 2.9 g/dL (1.3-4.6); Glomerular Filtration Rate 101.1 mL/min (90-130); Glucose 83 mg/dL (65-115); Lipase 24 U/L (13-60); Osmolality Calculated 286 mOsm/kg (285-295); Potassium 3.5 mmol/L (3.5-5.1); Sodium 139 mmol/L (136-145); Total Bilirubin 0.2 mg/dL (0.15-1.2)
[2023-03-30 22:25] VITALS: BP 146/96; O2SAT 98
== END 2023-03-30 22:26 | disposition home or self-care (01) ==
PROVIDERS: Emergency Provider Emergency Medicine; PCP Family Medicine
DX: R11.11 Vomiting without nausea (principal); Z77.22 Contact with and (suspected) exposure to environmental tobacco smoke (acute) (chronic)
CPT/HCPCS: 36415; 80053; 83690; 84703; 85025; 96374; 99284; J2405; J7030

== ENCOUNTER → 2023-04-23 14:33 | Outpatient (BNVA) | payer MEDICAID, SELFPAY ==
[2022-02-05 13:54] VITALS: BP 128/90; BMI 41.4
== END ==
PROVIDERS: PCP Family Medicine; Visit Provider Emergency Medicine
DX: R05.9 Cough, unspecified (principal)
CPT/HCPCS: 87426

== ENCOUNTER → 2023-10-07 10:54 | Outpatient (BNVA) | payer MEDICAID, SELFPAY ==
[2022-02-05 13:54] VITALS: BP 128/90; BMI 41.4
== END ==
PROVIDERS: PCP Family Medicine; Visit Provider Family Medicine
DX: R05.9 Cough, unspecified (principal); R00.2 Palpitations; E83.42 Hypomagnesemia
CPT/HCPCS: 80053; 83735; 84443; 85025; 87400; 87426

== ENCOUNTER 2023-11-14 07:16 | Emergency (ER) | payer MEDICAID, SELFPAY ==
[2022-02-05 13:54] VITALS: BP 128/90; BMI 41.4
[2023-11-14 07:24] VITALS: BP 163/85; PULSE 93; RESP 22; TEMP 36.6; O2SAT 97; BMI 46.3
--- NOTE | 2023-11-14 07:34 | XR_ITS ---
WS: [id number] Examination: XR lumbar spine 2-3V* 29902 Reason for Exam: back pain Date: November 14, 2023 Comparison: October 10, 2021 Findings: The pedicles and the bone density are intact. The SI joints appear symmetrical and unremarkable. The lumbar vertebral body heights are maintained without anterior wedging. Alignment is satisfactory without subluxation. The disc space height generally well maintained. XR/XR lumbar spine 2-3V* [id number] Impression: There is no compression or subluxation
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
[2023-11-14] MEDS: methocarbamol 750 mg Tablet 1500 MG PO (07:40)
[2023-11-14] MEDS: dexamethasone 10 mg/mL INJ IM (07:41)
[2023-11-14] MEDS: ketorolac 60 mg/2 mL INJ IM (07:41)
--- NOTE | 2023-11-14 08:02 | DCPLANNER ---
messaged ortho for er f/u
[2023-11-14 08:12] VITALS: PULSE 93; O2SAT 98
== END 2023-11-14 08:13 | disposition home or self-care (01) ==
PROVIDERS: Emergency Provider Emergency Medicine; PCP Family Medicine
DX: M54.50 Low back pain, unspecified (principal); Z77.22 Contact with and (suspected) exposure to environmental tobacco smoke (acute) (chronic)
CPT/HCPCS: 72100; 96372; 99284; J1100; J1885

== ENCOUNTER → 2023-11-21 13:02 | Outpatient (BNVA) | payer MEDICAID, SELFPAY ==
[2022-02-05 13:54] VITALS: BP 128/90; BMI 41.4
== END ==
PROVIDERS: PCP Family Medicine; Visit Provider Orthopaedic Surgery
DX: M54.50 Low back pain, unspecified (principal)
CPT/HCPCS: 72110; 99204

== ENCOUNTER → 2023-12-18 08:21 | Outpatient (BNVA) | payer OTHER, SELFPAY ==
[2022-02-05 13:54] VITALS: BP 128/90; BMI 41.4
== END ==
PROVIDERS: PCP Family Medicine; Visit Provider Nurse Practitioner Psychiatric/Mental Health
DX: Z79.899 Other long term (current) drug therapy (principal)
CPT/HCPCS: 80061; 83036

== ENCOUNTER → 2024-08-05 12:27 | Outpatient (BNVA) | payer MEDICAID, SELFPAY ==
[2022-02-05 13:54] VITALS: BP 128/90; BMI 41.4
== END ==
PROVIDERS: PCP Family Medicine; Visit Provider Nurse Practitioner
DX: R05.9 Cough, unspecified (principal)
CPT/HCPCS: 87426